=== PATIENT | male | born 1940 | race Hispanic/Latino ===

== ENCOUNTER 2018-09-28 10:18 | Inpatient (IN) | payer MEDICARE, OTHER ==
[2018-09-28] MEDS ORDERED: ZOSYN/NS 4.5GM/100ML 4.5 GM/100 ML VIAL IV ONE (10:50)
[2018-09-28] MEDS ORDERED: TYLENOL PR ONE ×2 (10:51→13:33)
[2018-09-28] MEDS ORDERED: NACL 0.9% 1000 ML 1,000 ML IV ONE (10:52)
--- NOTE | 2018-09-28 11:00 | Emergency Department Report ---
ED Fever HPI - General Stated Complaint: SEPSIS Time Seen by Provider: 09/28/18 10:41 Source: patient, EMS Exam Limitations: clinical condition, physical impairment - History of Present Illness Initial Comments: 77-year-old male with a past history of dementia and Parkinson's disease presents from [facility] with alteration mental status and fever. Patient is currently on Rocephin 1 g daily 5 days for UTI started on 09/26. Today he apparently had diminished mental status and persistent fever. Patient received 650 mg of Tylenol prior to arrival at 6 AM. assisted vitals prior to transfer were BP 108/68, heart rate 62, respiratory rate 20, and temperature 102.9. Patient says grimaces and localizes pain but makes incomprehensible sounds and does not follow commands. Outpatient labs from 09/25/2018 provided by [facility] that include a result positive for nitrites and bacteria with pending culture. ED Review of Systems ROS: Stated complaint: SEPSIS Other details as noted in HPI Comment: Unobtainable due to pts medical conditions ED Past Medical Hx - Past Medical History Previous Medical History?: Yes Hx GERD: Yes Hx Dementia: Yes Additional medical history: Parkinson's. Benign prostate hyperplasia. Glaucoma ED Physical Exam - Other Other exam information: General: Baseline dementia with diminished mental status Head exam: Atraumatic Eyes exam: Left pupil is irregularly shaped and then a reactive, right pupil reactive ENT: Dry mucous membranes Neck exam: Normal inspection, no meningismus Respiratory exam: Bilateral rhonchi, tachypnea Cardiovascular: Tachycardic regular rhythm Abdomen: Soft, nondistended, and nontender, with normal bowel sounds, no rebound, or guarding, no PEG Extremity: No deformity Back: Normal Inspection, full range of motion, no tenderness Neurologic: Make incomprehensible sounds, would not follow commands, localizes pain. Moves upper extremities equal with intention tremor noted. Patient referred safe to be flex at the hips and knee. Patient grimaces with attempt to straighten extremities. Psychiatric: normal affect, normal mood Skin: Stage I decubitus ulcers to bilateral hips, pressure ulcer to sacral area. No signs of infected ulcer ED Course Vital Signs 09/28/18 09/28/18 09/28/18 10:50 11:00 12:45 Temperature 103.7 F H Pulse Rate 118 H 118 H 106 H Respiratory 31 H 31 H 30 H Rate Blood Pressure 95/56 Blood Pressure 105/51 [Left] O2 Sat by Pulse 93 93 94 Oximetry 09/28/18 09/28/18 09/28/18 13:26 14:39 15:43 Temperature 101.2 F H Pulse Rate 98 H 99 H 98 H Respiratory 30 H 30 H 28 H Rate Blood Pressure Blood Pressure 105/57 106/53 92/56 [Left] O2 Sat by Pulse 98 95 Oximetry ED Medical Decision Making - Lab Data Result diagrams: 09/28/18 10:55 09/28/18 12:23 - EKG Data -: EKG Interpreted by [place] EKG shows normal: sinus rhythm, axis Rate: tachycardia (101) - Radiology Data Radiology results: report reviewed PROCEDURE: XR CHEST 1V AP TECHNIQUE: Chest radiograph single view. HISTORY: fever, sepsis COMPARISONS: None . FINDINGS: The cardiac silhouette is not enlarged. Confluent airspace disease in the retrocardiac left lower lobe silhouetting the left hemidiaphragm which may represent pneumonia, atelectasis and or aspiration. Increased interstitial markings, likely chronic. Pulmonary va sculature is within normal limits. Limited evaluation with patient in supine position and malrotated to the left. IMPRESSION: Confluent airspace disease in the retrocardiac left lower lobe which may represent pneumonia, atelectasis or aspiration. Follow-up PA and lateral radiographs will be helpful clinically feasible. - Medical Decision Making Patient be admitted to the hospital for urosepsis and possible pneumonia. Patient also appears to be dehydrated with elevated bun/cr ratio. Most recent lab work provided by the [facility] home September 25 BUN and creatinine were 27/0.7 with a sodium of 145 and a chloride of 108 today's finding consistent with worsening dehydration. Still awaiting UA results. Nursing sent urine to the lab 2 after Joyce catheter placement. Patient treated with vancomycin and Zosyn. Patient also received 30 mL per KG bolus of normal saline. Improvement in heart rate and blood pressure with ED treatment elevated trop x 1 no stemi on ekg elevation likely due to renal insuf asa [place] provided repeat trop pending abg is neg for acid base disturbance mild hypoxia (abg performed on 10L of Nasal cannula) pt switched go venti mask dr La updated about increasing lactic acid. - Differential Diagnosis UTI, urosepsis, encephalopathy, pneumonia Critical Care Time: No Critical care attestation.: If time is entered above; I have spent that time in minutes in the direct care of this critically ill patient, excluding procedure time. ED Disposition Clinical Impression: Sepsis, UTI (urinary tract infection), Dehydration, Acute renal insufficiency, Elevated troponin, Chronic dementia, Acute encephalopathy, Parkinsons, Pneumonia, assisted resident Disposition: OP ADMIT IP TO THIS HOSP Is pt being admited?: Yes Condition: Stable Time of Disposition: 13:28 (Dr. La/hospitalist)
[2018-09-28 11:18] LABS: Hematocrit 40.9 % (35.5-45.6); Hemoglobin 13.4 gm/dl (11.8-15.2); Mean Corpuscular HGB Conc 33 % (32-34); Mean Corpuscular Volume 102 fl (84-94); Platelet Count 332 K/mm3 (140-440); Red Blood Count 4.02 M/mm3 (3.65-5.03); Red Cell Distribution Width 14.7 % (13.2-15.2)
--- NOTE | 2018-09-28 11:38 | XRay Report ---
PROCEDURE: XR CHEST 1V AP TECHNIQUE: Chest radiograph single view. HISTORY: fever, sepsis COMPARISONS: None . FINDINGS: The cardiac silhouette is not enlarged. Confluent airspace disease in the retrocardiac left lower lobe silhouetting the left hemidiaphragm wh ich may represent pneumonia, atelectasis and or aspiration. Increased interstitial markings, likely chronic. Pulmonary vasculature is within normal limits. Limited evaluation with patient in supine position and malrotated to the left. IMPRESSION: Confluent airspace disease in the retrocardiac left lower lobe which may represent pneumo suzan, atelectasis or aspiration. Follow-up PA and lateral radiographs will be helpful clinically feasible. This document is electronically signed by Toan Hernandez MD., September 28 2018 11:36:24 AM ET
[2018-09-28] MEDS ORDERED: VANCOMYCIN/NS 1 GM/250 ML 1 GM/250 ML BAG IV ONE (12:00)
[2018-09-28] MEDS ORDERED: NACL 0.9% 1000 ML IV ONE (12:08)
[2018-09-28 12:30] LABS: Blood Urea Nitrogen TNR mg/dL (9-20)
[2018-09-28 12:31] LABS: Alanine Aminotransferase TNR units/L (7-56); Albumin TNR g/dL (3.9-5); BUN/Creatinine Ratio TNR; Calcium TNR mg/dL (8.4-10.2)
[2018-09-28 12:32] LABS: Chol/HDL Ratio TNR %; HDL Cholesterol TNR mg/dL (40-59); Hemolysis Index TNR; LDL Cholesterol,Direct TNR mg/dL (50-130)
[2018-09-28 13:07] LABS: Albumin 2.2 g/dL (3.9-5); Calcium 8.5 mg/dL (8.4-10.2)
[2018-09-28 13:12] LABS: Bacteria,Urine 1+ /HPF (Negative); Bilirubin,Urine NEG (Negative); Blood,Urine NEG (Negative); Color,Urine Amber (Yellow); Mucus,Urine 3+ /HPF
[2018-09-28] MEDS ORDERED: ASPIRIN PR ONE (13:31)
[2018-09-28 14:02] LABS: Total Cells Counted 100
[2018-09-28 14:03] LABS: Basophils % (Manual) 0 % (0.0-1.8); Eosinophils % (Manual) 0 % (0.0-4.3); Platelet Estimate Consistent w Auto; RBC Morphology Normal
[2018-09-28] MEDS ORDERED: NACL 0.9% 1000 ML 1,000 ML IV SCH (17:00)
--- NOTE | 2018-09-28 19:47 | History and Physical Report ---
History of Present Illness Date of examination: 09/28/18 Date of admission: 09/28/18 15:09 Chief complaint: Fever amd AMS for 1 day History of present illness: 77-year-old male with a past history of dementia and Parkinson's disease presents from [facility] with altered mental status and fever. Patient is currently on Rocephin 1 g daily 5 days for UTI started on 09/26. Today he apparently had diminished mental status and persistent fever. Patient received 650 mg of Tylenol prior to arrival at 6 AM. halfway vitals prior to transfer were BP 108/68, heart rate 62, respiratory rate 20, and temperature 102.9. Patient grimaces and localizes pain but makes incomprehensible sounds and does not follow commands. Outpatient labs from provided by [facility] that include a result positive for nitrites and bacteria with pending culture. As per [place] notes patienthasdisorientation,Generalized muscle weakness and difficulty walking.Also BPH and HTN Past Medical History Previous Medical History?: Yes GERD: Yes Dementia: Yes Htn Parkinson's. Benign prostate hyperplasia. Glaucoma Past Surgical History Unavailable Social History [place] resident Doesn't smoke Family History Unavailable Review of Systems ROS: Stated complaint: SEPSIS Other details as noted in HPI Comment: Unobtainable due to pts medical conditions Medications and Allergies Allergies Allergy/AdvReac Type Severity Reaction Status Date / Time haloperidol [From Haldol] Allergy Unknown Verified 09/28/18 10:54 morphine Allergy Unknown Verified 09/28/18 10:54 promethazine [From Phenergan] Allergy Unknown Verified 09/28/18 10:54 Active Meds: Active Medications Sodium Chloride (Nacl 0.9% 1000 Ml) 1,000 mls @ 200 mls/hr IV DIRECT OMAYRA Last Admin: 09/28/18 18:52 Dose: 200 mls/hr Documented by: Exam - Constitutional Vitals: Temp Pulse Resp BP Pulse Ox 99.0 F 95 H 28 H 104/57 95 09/28/18 17:56 09/28/18 17:11 09/28/18 17:11 09/28/18 17:11 09/28/18 17:11 General appearance: Present: no acute distress, well-nourished - EENT Eyes: Present: PERRL ENT: hearing intact, clear oral mucosa - Neck Neck: Present: supple, normal ROM - Respiratory Respiratory effort: normal Respiratory: bilateral: CTA - Cardiovascular Heart rate: 78 Rhythm: regular Heart Sounds: Present: S1 & S2. Absent: rub, click - Extremities Extremities: no ischemia, pulses intact, pulses symmetrical, No edema Peripheral Pulses: within normal limits - Abdominal General gastrointestinal: Present: soft, non-tender, non-distended, normal bowel sounds Male genitourinary: Present: normal - Rectal Rectal Exam: deferred - Integumentary Integumentary: Present: clear, warm, dry - Musculoskeletal Musculoskeletal: generalized weakness - Psychiatric Psychiatric: depressed, other (Lethargic,Altered sensorium.) - Neurologic Neurologic: CNII-XII intact (Could not be examined b/c of altered sensorium), moves all extremities - Allied Health Allied health notes reviewed: nursing, case management Results - Labs CBC & Chem 7: 09/29/18 04:42 09/29/18 04:42 Labs: Laboratory Last Values WBC 13.8 K/mm3 (4.5-11.0) H 09/28/18 10:55 RBC 4.02 M/mm3 (3.65-5.03) 09/28/18 10:55 Hgb 13.4 gm/dl (11.8-15.2) 09/28/18 10:55 Hct 40.9 % (35.5-45.6) 09/28/18 10:55 MCV 102 fl (84-94) H 09/28/18 10:55 MCH 33 pg (28-32) H 09/28/18 10:55 MCHC 33 % (32-34) 09/28/18 10:55 RDW 14.7 % (13.2-15.2) 09/28/18 10:55 Plt Count 332 K/mm3 (140-440) 09/28/18 10:55 Add Manual Diff Complete 09/28/18 10:55 Total Counted 100 09/28/18 10:55 Seg Neutrophils % Boom Conveyor Operator 09/28/18 10:55 Seg Neuts % (Manual) 77.0 % (40.0-70.0) H 09/28/18 10:55 7.0 % 09/28/18 10:55 6.0 % (13.4-35.0) L 09/28/18 10:55 Reactive Lymphs % (Man) 0 % 09/28/18 10:55 10.0 % (0.0-7.3) H 09/28/18 10:55 0 % (0.0-4.3) 09/28/18 10:55 0 % (0.0-1.8) 09/28/18 10:55 0 % 09/28/18 10:55 0 % 09/28/18 10:55 0 % 09/28/18 10:55 0 % 09/28/18 10:55 Nucleated RBC % Not Reportable 09/28/18 10:55 Seg Neutrophils # Man 10.6 K/mm3 (1.8-7.7) H 09/28/18 10:55 Band Neutrophils # 1.0 K/mm3 09/28/18 10:55 0.8 K/mm3 (1.2-5.4) L 09/28/18 10:55 Abs React Lymphs (Man) 0.0 K/mm3 09/28/18 10:55 1.4 K/mm3 (0.0-0.8) H 09/28/18 10:55 0.0 K/mm3 (0.0-0.4) 09/28/18 10:55 0.0 K/mm3 (0.0-0.1) 09/28/18 10:55 0.0 K/mm3 09/28/18 10:55 0.0 K/mm3 09/28/18 10:55 0.0 K/mm3 09/28/18 10:55 Blast Cells # 0.0 K/mm3 09/28/18 10:55 WBC Morphology Not Reportable 09/28/18 10:55 Hypersegmented Neuts Not Reportable 09/28/18 10:55 Hyposegmented Neuts Not Reportable 09/28/18 10:55 Hypogranular Neuts Not Reportable 09/28/18 10:55 Not Reportable 09/28/18 10:55 Not Reportable 09/28/18 10:55 Not Reportable 09/28/18 10:55 Not Reportable 09/28/18 10:55 Not Reportable 09/28/18 10:55 Not Reportable 09/28/18 10:55 Consistent w auto 09/28/18 10:55 Not Reportable 09/28/18 10:55 Plt Clumps, EDTA Not Reportable 09/28/18 10:55 Not Reportable 09/28/18 10:55 Not Reportable 09/28/18 10:55 Not Reportable 09/28/18 10:55 Plt Morphology Comment Not Reportable 09/28/18 10:55 RBC Morphology Normal 09/28/18 10:55 Dimorphic RBCs Not Reportable 09/28/18 10:55 Not Reportable 09/28/18 10:55 Not Reportable 09/28/18 10:55 Not Reportable 09/28/18 10:55 Not Reportable 09/28/18 10:55 Not Reportable 09/28/18 10:55 Not Reportable 09/28/18 10:55 Not Reportable 09/28/18 10:55 Not Reportable 09/28/18 10:55 Not Reportable 09/28/18 10:55 Not Reportable 09/28/18 10:55 Not Reportable 09/28/18 10:55 Not Reportable 09/28/18 10:55 Not Reportable 09/28/18 10:55 Not Reportable 09/28/18 10:55 Not Reportable 09/28/18 10:55 Not Reportable 09/28/18 10:55 Not Reportable 09/28/18 10:55 Not Reportable 09/28/18 10:55 Not Reportable 09/28/18 10:55 Acanthocytes (Spur) Not Reportable 09/28/18 10:55 Rouleaux Not Reportable 09/28/18 10:55 Not Reportable 09/28/18 10:55 Not Reportable 09/28/18 10:55 Not Reportable 09/28/18 10:55 Not Reportable 09/28/18 10:55 Hem Pathologist Commnt No 09/28/18 10:55 POC ABG pH 7.408 (7.35-7.45) 09/28/18 14:16 POC ABG pCO2 37.5 (35-45) 09/28/18 14:16 POC ABG pO2 64 (80-105) L 09/28/18 14:16 POC ABG HCO3 23.6 (22-26 mml/L) 09/28/18 14:16 POC ABG Total CO2 25 (23-27mmol/L) 09/28/18 14:16 POC ABG O2 Sat 92 09/28/18 14:16 POC ABG Base Excess -1 ((-2) - (+3)mmol/L) 09/28/18 14:16 VBG pH 7.416 (7.320-7.420) 09/28/18 11:20 70 % 09/28/18 14:16 Sodium 154 mmol/L (137-145) H 09/28/18 12:23 Potassium 3.9 mmol/L (3.6-5.0) 09/28/18 12:23 Chloride 115.7 mmol/L (98-107) H 09/28/18 12:23 Carbon Dioxide 23 mmol/L (22-30) 09/28/18 12:23 19 mmol/L 09/28/18 12:23 BUN 62 mg/dL (9-20) H 09/28/18 12:23 1.7 mg/dL (0.8-1.5) H 09/28/18 12:23 Estimated GFR 39 ml/min 09/28/18 12:23 36 % 09/28/18 12:23 Glucose 293 mg/dL (75-100) H 09/28/18 12:23 POC Glucose 191 (70-105) H 09/28/18 17:58 Lactic Acid 3.90 mmol/L (0.7-2.0) H* 09/28/18 15:40 Calcium 8.5 mg/dL (8.4-10.2) 09/28/18 12:23 0.70 mg/dL (0.1-1.2) 09/28/18 12:23 AST 44 units/L (5-40) H 09/28/18 12:23 ALT 42 units/L (7-56) 09/28/18 12:23 66 units/L (35-129) 09/28/18 12:23 0.033 ng/mL (0.00-0.029) H D 09/28/18 14:46 6.6 g/dL (6.3-8.2) 09/28/18 12:23 2.2 g/dL (3.9-5) L 09/28/18 12:23 0.5 % 09/28/18 12:23 Triglycerides TNR 09/28/18 10:55 Cholesterol TNR 09/28/18 10:55 TNR 09/28/18 10:55 TNR 09/28/18 10:55 TNR 09/28/18 10:55 Lotus (Yellow) 09/28/18 11:57 Slightly-cloudy (Clear) 09/28/18 11:57 5.0 (5.0-7.0) 09/28/18 11:57 Ur Specific [place] 1.027 (1.003-1.030) 09/28/18 11:57 30 mg/dl mg/dL (Negative) 09/28/18 11:57 Neg mg/dL (Negative) 09/28/18 11:57 Neg mg/dL (Negative) 09/28/18 11:57 Neg (Negative) 09/28/18 11:57 Neg (Negative) 09/28/18 11:57 Neg (Negative) 09/28/18 11:57 2.0 mg/dL (<2.0) 09/28/18 11:57 Ur Leukocyte Esterase Tr (Negative) 09/28/18 11:57 10.0 /HPF (0.0-6.0) H 09/28/18 11:57 9.0 /HPF (0.0-6.0) 09/28/18 11:57 U Epithel Cells (Auto) < 1.0 /HPF (0-13.0) 09/28/18 11:57 1+ /HPF (Negative) 09/28/18 11:57 3+ /HPF 09/28/18 11:57 Valproic Acid 3.8 ug/mL (50-100) L 09/28/18 10:55 Short CBC 09/28/18 09/29/18 Range/Units 10:55 04:42 WBC 13.8 H 8.3 (4.5-11.0) K/mm3 Hgb 13.4 10.8 L (11.8-15.2) gm/dl Hct 40.9 32.3 L D (35.5-45.6) % Plt Count 332 211 (140-440) K/mm3 BMP 09/28/18 09/28/18 09/29/18 10:55 12:23 04:42 Sodium TNR 154 H 160 H Potassium TNR 3.9 4.0 Chloride TNR 115.7 H 126.8 H Carbon Dioxide TNR 23 25 BUN TNR 62 H 47 H Creatinine TNR 1.7 H 0.8 D Glucose TNR 293 H 169 H Calcium TNR 8.5 8.2 L Cardiac Enzymes 09/28/18 09/28/18 09/28/18 Range/Units 10:55 12:23 14:46 Troponin T TNR 0.042 H 0.033 H D Liver Function 09/28/18 09/28/18 09/29/18 Range/Units 10:55 12:23 04:42 Total Bilirubin TNR 0.70 0.60 AST TNR 44 H 34 ALT TNR 42 37 Alkaline Phosphatase TNR 66 54 Albumin TNR 2.2 L 2.1 L Urine 09/28/18 Range/Units 11:57 Urine Color Lotus (Yellow) Urine pH 5.0 (5.0-7.0) Ur Specific [place] 1.027 (1.003-1.030) Urine Protein 30 mg/dl (Negative) mg/dL Urine Glucose (UA) Neg (Negative) mg/dL - Imaging and Cardiology EKG: report reviewed (Sinus Tachycardia LVH 101/min) Chest x-ray: report reviewed Imaging and Cardiology: CXR IMPRESSION: Confluent airspace disease in the retrocardiac left lower lobe which may represent pneumonia, atelectasis or aspiration. Follow-up PA and lateral radiographs will be helpful clinically feasible. Assessment and Plan Advance Directives: Yes (Full code) VTE prophylaxis?: Chemical Plan of care discussed with patient/family: No - Patient Problems (1) Acute encephalopathy Current Visit: Yes Status: Acute Plan to address problem: Sec to sepsis and Hypernatremia IV D5w for now IV abx and (2) Sepsis Current Visit: Yes Status: Acute Plan to address problem: Sec to Pneumonia Sepsis pathway IV Cefepime and IV Vancomycin (3) Hypotension Current Visit: Yes Status: Acute Qualifiers: Hypotension type: unspecified hypotension type Qualified Code(s): I95.9 - Hypotension, unspecified Plan to address problem: Sec to Sepsis IV Fluids for now (4) Pneumonia Current Visit: Yes Status: Acute Qualifiers: Laterality: left Lung location: lower lobe of lung Plan to address problem: Polssible aspiration Swallow studies IV Cefepime and IV vancomycin (5) UTI (urinary tract infection) Current Visit: Yes Status: Acute Qualifiers: Urinary tract infection type: acute cystitis Plan to address problem: On IV cefepime for Pneumonia which should cover UTI Check Urine cultures (6) Hypernatremia Current Visit: Yes Status: Acute Plan to address problem: IV D5w (7) KRISTIE (acute kidney injury) Current Visit: Yes Status: Acute (8) BPH (benign prostatic hyperplasia) Current Visit: Yes Status: Chronic Qualifiers: Lower urinary tract symptom presence: symptoms present Plan to address problem: Flomax 0.4 mg po qd (9) Parkinson disease Current Visit: Yes Status: Chronic Plan to address problem: On Sinemet (10) Malnutrition Current Visit: Yes Status: Acute Qualifiers: Protein-calorie malnutrition severity: severe Plan to address problem: Dietitian consult (11) Elevated troponin Current Visit: Yes Status: Acute Plan to address problem: Non specific (12) DVT prophylaxis Current Visit: Yes Status: Acute Plan to address problem: On Heparin and GI prophylaxis
[2018-09-28] MEDS ORDERED: ZOFRAN IV PRN (19:50)
[2018-09-28] MEDS ORDERED: SODIUM CHLORIDE FLUSH SYRINGE 10 ML IV PRN (19:50)
[2018-09-28] MEDS ORDERED: MORPHINE IV PRN (19:50)
[2018-09-28] MEDS ORDERED: D5NS 1,000 ML IV SCH (20:00)
[2018-09-28] MEDS ORDERED: VANCOMYCIN PHARMACY TO DOSE IV SCH (20:00)
[2018-09-28] MEDS ORDERED: LOVENOX SUB-Q SCH (22:00)
[2018-09-28] MEDS: PEPCID IV SCH (22:20)
[2018-09-28] MEDS: SODIUM CHLORIDE FLUSH SYRINGE 10 ML IV SCH (22:26)
[2018-09-28] MEDS: MAXIPIME/NS 2 GM/100 ML 2 GM/100 ML BAG IV SCH (22:46)
[2018-09-29 05:08] LABS: Basophils % (Auto) 0.4 % (0.0-1.8); Hematocrit 32.3 % (35.5-45.6); Hemoglobin 10.8 gm/dl (11.8-15.2); Lymphocytes # (Auto) 0.8 K/mm3 (1.2-5.4); Lymphocytes % (Auto) 9.4 % (13.4-35.0); Mean Corpuscular HGB Conc 34 % (32-34); Mean Corpuscular Volume 101 fl (84-94); Monocytes # (Auto) 0.4 K/mm3 (0.0-0.8); Monocytes % (Auto) 4.3 % (0.0-7.3); Platelet Count 211 K/mm3 (140-440); Red Cell Distribution Width 14.3 % (13.2-15.2)
[2018-09-29 05:29] LABS: Alanine Aminotransferase 37 units/L (7-56); Albumin 2.1 g/dL (3.9-5); BUN/Creatinine Ratio 59; Blood Urea Nitrogen 47 mg/dL (9-20); Calcium 8.2 mg/dL (8.4-10.2); Hemolysis Index 2
[2018-09-29] MEDS ORDERED: D5W 1,000 ML IV SCH (07:00)
[2018-09-29] MEDS: SINEMET PO SCH ×3 (08:11→22:26)
[2018-09-29] MEDS: PEPCID IV SCH ×2 (09:10→22:26)
[2018-09-29] MEDS: SODIUM CHLORIDE FLUSH SYRINGE 10 ML IV SCH ×2 (09:21→22:26)
[2018-09-29] MEDS: FLOMAX PO SCH (10:05)
--- NOTE | 2018-09-29 10:32 | Consultation ---
History of Present Illness - Reason for Consult Consult date: 09/29/18 sepsis Requesting physician: KAYLA ARCOS - History of Present Illness 77 y/o male with history of dementia and Parkinson's disease, currently being treated for a UTI at [facility] with ceftriaxone IV D3 of 5, admitted on 09/28/2018 due to alteration mental status and fever 102.9. Per residential patient found slightly hypotensive, somnelent and fever of 102.9 despite antibiotics. Urine culture is pending. Outpatient labs from 09/25/2018 UA shows positive for nitrites and bacteria. In the ED, temp 103.7, HR 118, R31, BP 95/56. WBC 13.8. Hg 13.4. Plat 332. Creat 1.7. UA with 10 wbc, trace LE. LA 3.8. Blood cultures 09/28/2018 no growth so far. CXR shows confluent airspace disease retrocardiac and LLL. On arrival to the ED, he was on venturi mask at 40% FiO2 with O2sat 95-97%. Noted contracted, non-verbal, moans on touch. Noted juarez cath, draining clear, light claudia urine. Noted sacral and left hip pressure ulcers. Review of Systems: unable to obtain due to AMS Medications and Allergies Allergies Allergy/AdvReac Type Severity Reaction Status Date / Time haloperidol [From Haldol] Allergy Unknown Verified 09/28/18 10:54 morphine Allergy Unknown Verified 09/28/18 10:54 promethazine [From Phenergan] Allergy Unknown Verified 09/28/18 10:54 Active Meds: Active Medications Acetaminophen (Tylenol) 650 mg PO Q4H PRN PRN Reason: Pain MILD(1-3)/Fever >100.5/CHACKO Carbidopa/Levodopa (Sinemet) 1 each PO TID OMAYRA Famotidine (Pepcid) 20 mg IV BID OMAYRA Last Admin: 09/29/18 09:10 Dose: 20 mg Documented by: Heparin Sodium (Porcine) (Heparin) 5,000 unit SUB-Q Q12HR OMAYRA Cefepime HCl (Maxipime/Ns 2 Gm/100 Ml) 2 gm in 100 mls @ 200 mls/hr IV Q8HR OMAYRA; Protocol Last Admin: 09/28/18 22:46 Dose: 200 mls/hr Documented by: Dextrose (D5w) 1,000 mls @ 100 mls/hr IV DIRECT [facility] Last Admin: 09/29/18 09:25 Dose: 100 mls/hr Documented by: Vancomycin HCl 750 mg/ Sodium (Chloride) 265 mls @ 166.667 mls/hr IV Q12HR [facility] Morphine Sulfate (Morphine) 2 mg IV Q4H PRN PRN Reason: Pain, Moderate (4-6) Ondansetron HCl (Zofran) 4 mg IV Q3H PRN PRN Reason: Nausea And Vomiting Sodium Chloride (Sodium Chloride Flush Syringe 10 Ml) 10 ml IV BID [facility] Last Admin: 09/29/18 09:21 Dose: 10 ml Documented by: Sodium Chloride (Sodium Chloride Flush Syringe 10 Ml) 10 ml IV PRN PRN PRN Reason: LINE FLUSH Tamsulosin HCl (Flomax) 0.4 mg PO QDAY [facility] Physical Examination - Physical Exam Narrative exam: General appearance: somnolent no follows commands Eyes: anicteric sclerae, moist conjunctivae; no lid-lag; PERRLA HENT: Atraumatic; oropharynx limited Neck: Trachea midline; supple, no thyromegaly or lymphadenopathy Lungs: decreased BS dolly CV: RRR no murmur Abdomen: Soft, non-tender; no masses or hepatosplenomegaly Extremities: no edema, contracted Skin: stage I-II sacral not infected Psych: no agitated. Neuro: somnolent no follows commands - Constitutional Vitals: Vital Signs Temp Pulse Resp BP Pulse Ox 99.1 F 77 28 H 104/57 95 09/29/18 03:00 09/28/18 22:00 09/28/18 17:11 09/28/18 17:11 09/28/18 17:11 Temperature -Last 24 Hours Temperature 99.1 F Temperature 97.6 F Temperature 98.2 F Temperature 99.0 F Temperature 101.2 F Temperature 103.7 F Results - Labs CBC & Chem 7: 09/29/18 04:42 09/29/18 04:42 Labs: Abnormal lab results 09/28/18 09/28/18 09/28/18 Range/Units 10:55 10:55 10:55 WBC 13.8 H (4.5-11.0) K/mm3 RBC (3.65-5.03) M/mm3 Hgb (11.8-15.2) gm/dl Hct (35.5-45.6) % MCV 102 H (84-94) fl MCH 33 H (28-32) pg Lymph % (Auto) (13.4-35.0) % Lymph # (1.2-5.4) K/mm3 Seg Neutrophils % (40.0-70.0) % Seg Neuts % (Manual) 77.0 H (40.0-70.0) % Lymphocytes % (Manual) 6.0 L (13.4-35.0) % Monocytes % (Manual) 10.0 H (0.0-7.3) % Seg Neutrophils # Man 10.6 H (1.8-7.7) K/mm3 Lymphocytes # (Manual) 0.8 L (1.2-5.4) K/mm3 Monocytes # (Manual) 1.4 H (0.0-0.8) K/mm3 POC ABG pO2 (80-105) Sodium (137-145) mmol/L Chloride (98-107) mmol/L BUN (9-20) mg/dL Creatinine (0.8-1.5) mg/dL Glucose (75-100) mg/dL POC Glucose (70-105) Lactic Acid 3.80 H* (0.7-2.0) mmol/L Calcium (8.4-10.2) mg/dL AST (5-40) units/L Troponin T (0.00-0.029) ng/mL Total Protein (6.3-8.2) g/dL Albumin (3.9-5) g/dL Urine WBC (Auto) (0.0-6.0) /HPF Valproic Acid 3.8 L (50-100) ug/mL 09/28/18 09/28/18 09/28/18 Range/Units 11:57 12:23 12:23 WBC (4.5-11.0) K/mm3 RBC (3.65-5.03) M/mm3 Hgb (11.8-15.2) gm/dl Hct (35.5-45.6) % MCV (84-94) fl MCH (28-32) pg Lymph % (Auto) (13.4-35.0) % Lymph # (1.2-5.4) K/mm3 Seg Neutrophils % (40.0-70.0) % Seg Neuts % (Manual) (40.0-70.0) % Lymphocytes % (Manual) (13.4-35.0) % Monocytes % (Manual) (0.0-7.3) % Seg Neutrophils # Man (1.8-7.7) K/mm3 Lymphocytes # (Manual) (1.2-5.4) K/mm3 Monocytes # (Manual) (0.0-0.8) K/mm3 POC ABG pO2 (80-105) Sodium 154 H (137-145) mmol/L Chloride 115.7 H (98-107) mmol/L BUN 62 H (9-20) mg/dL Creatinine 1.7 H (0.8-1.5) mg/dL Glucose 293 H (75-100) mg/dL POC Glucose (70-105) Lactic Acid 3.50 H* (0.7-2.0) mmol/L Calcium (8.4-10.2) mg/dL AST 44 H (5-40) units/L Troponin T 0.042 H (0.00-0.029) ng/mL Total Protein (6.3-8.2) g/dL Albumin 2.2 L (3.9-5) g/dL Urine WBC (Auto) 10.0 H (0.0-6.0) /HPF Valproic Acid (50-100) ug/mL 09/28/18 09/28/18 09/28/18 Range/Units 14:16 14:46 14:46 WBC (4.5-11.0) K/mm3 RBC (3.65-5.03) M/mm3 Hgb (11.8-15.2) gm/dl Hct (35.5-45.6) % MCV (84-94) fl MCH (28-32) pg Lymph % (Auto) (13.4-35.0) % Lymph # (1.2-5.4) K/mm3 Seg Neutrophils % (40.0-70.0) % Seg Neuts % (Manual) (40.0-70.0) % Lymphocytes % (Manual) (13.4-35.0) % Monocytes % (Manual) (0.0-7.3) % Seg Neutrophils # Man (1.8-7.7) K/mm3 Lymphocytes # (Manual) (1.2-5.4) K/mm3 Monocytes # (Manual) (0.0-0.8) K/mm3 POC ABG pO2 64 L (80-105) Sodium (137-145) mmol/L Chloride (98-107) mmol/L BUN (9-20) mg/dL Creatinine (0.8-1.5) mg/dL Glucose (75-100) mg/dL POC Glucose (70-105) Lactic Acid 5.40 H* (0.7-2.0) mmol/L Calcium (8.4-10.2) mg/dL AST (5-40) units/L Troponin T 0.033 H D (0.00-0.029) ng/mL Total Protein (6.3-8.2) g/dL Albumin (3.9-5) g/dL Urine WBC (Auto) (0.0-6.0) /HPF Valproic Acid (50-100) ug/mL 09/28/18 09/28/18 09/28/18 Range/Units 15:40 17:58 23:22 WBC (4.5-11.0) K/mm3 RBC (3.65-5.03) M/mm3 Hgb (11.8-15.2) gm/dl Hct (35.5-45.6) % MCV (84-94) fl MCH (28-32) pg Lymph % (Auto) (13.4-35.0) % Lymph # (1.2-5.4) K/mm3 Seg Neutrophils % (40.0-70.0) % Seg Neuts % (Manual) (40.0-70.0) % Lymphocytes % (Manual) (13.4-35.0) % Monocytes % (Manual) (0.0-7.3) % Seg Neutrophils # Man (1.8-7.7) K/mm3 Lymphocytes # (Manual) (1.2-5.4) K/mm3 Monocytes # (Manual) (0.0-0.8) K/mm3 POC ABG pO2 (80-105) Sodium (137-145) mmol/L Chloride (98-107) mmol/L BUN (9-20) mg/dL Creatinine (0.8-1.5) mg/dL Glucose (75-100) mg/dL POC Glucose 191 H 148 H (70-105) Lactic Acid 3.90 H* (0.7-2.0) mmol/L Calcium (8.4-10.2) mg/dL AST (5-40) units/L Troponin T (0.00-0.029) ng/mL Total Protein (6.3-8.2) g/dL Albumin (3.9-5) g/dL Urine WBC (Auto) (0.0-6.0) /HPF Valproic Acid (50-100) ug/mL 09/29/18 09/29/18 09/29/18 Range/Units 04:42 04:42 05:40 WBC (4.5-11.0) K/mm3 RBC 3.20 L (3.65-5.03) M/mm3 Hgb 10.8 L (11.8-15.2) gm/dl Hct 32.3 L D (35.5-45.6) % MCV 101 H (84-94) fl MCH 34 H (28-32) pg Lymph % (Auto) 9.4 L (13.4-35.0) % Lymph # 0.8 L (1.2-5.4) K/mm3 Seg Neutrophils % 85.9 H (40.0-70.0) % Seg Neuts % (Manual) (40.0-70.0) % Lymphocytes % (Manual) (13.4-35.0) % Monocytes % (Manual) (0.0-7.3) % Seg Neutrophils # Man (1.8-7.7) K/mm3 Lymphocytes # (Manual) (1.2-5.4) K/mm3 Monocytes # (Manual) (0.0-0.8) K/mm3 POC ABG pO2 (80-105) Sodium 160 H (137-145) mmol/L Chloride 126.8 H (98-107) mmol/L BUN 47 H (9-20) mg/dL Creatinine (0.8-1.5) mg/dL Glucose 169 H (75-100) mg/dL POC Glucose 161 H (70-105) Lactic Acid (0.7-2.0) mmol/L Calcium 8.2 L (8.4-10.2) mg/dL AST (5-40) units/L Troponin T (0.00-0.029) ng/mL Total Protein 5.6 L (6.3-8.2) g/dL Albumin 2.1 L (3.9-5) g/dL Urine WBC (Auto) (0.0-6.0) /HPF Valproic Acid (50-100) ug/mL Assessment and Plan Cultures: Blood cultures 09/28/2018 no growth so far. Assessment: 77 y/o male with history of dementia and Parkinson's disease, admitted on 09/28/2018 due to alteration mental status and fever 102.9: 1) Severe Sepsis: Present on admission, manifested by fever, hypotension, tach ycardia, increased lactate and AMS. Etiology most likely due to HCAP +/- UTI. Blood cultures 09/28/2018 no growth so far. 2) HCAP: ? Staph ? Pseudomonas. CXR shows confluent airspace disease retroca rdiac and LLL. 3) UTI: UA with 10 wbc, trace LE. currently being treated for a UTI at [facility] with ceftriaxone IV D3 of 5. He has a juarez ? brought it from [place]. Noted juarez cath, draining clear, light claudia urine on arrival to the ED. 4) Acute respiratory failure: on venturi mask 5) KRISTIE: better. Recommendations: - follow-up blood cultures, urine culture - continue cefepime 2 g IV q8h and vancomycin with PK consult D2 of 7 - check MRSA Screening Will follow. Ana Luisa Pedro MD Infectious Diseases Agent Producer [facility] ([facility]) M [phone] O [phone]
[2018-09-29] MEDS: HEPARIN SUB-Q SCH ×2 (10:49→22:25)
[2018-09-29] MEDS: VANCOMYCIN 750 MG in NACL 0.9% 250ML 250 ML IV SCH ×2 (11:10→22:24)
[2018-09-29] MEDS: MAXIPIME/NS 2 GM/100 ML 2 GM/100 ML BAG IV SCH ×3 (13:09→22:20)
--- NOTE | 2018-09-29 15:20 | Progress Note ---
Assessment and Plan Assessment and plan: CC; Fever amd AMS for 1 day History of present illness: 77-year-old male with a past history of dementia and Parkinson's disease presents from [facility] with altered mental status and fever. Past Medical History ; gerd, dementia, htn, PD, BPH, glaucoma severe sepsis, UTI, PNA cont abx, fup cx, ID input appreciated hypernatremia/free water deficit/KRISTIE due to ATN -had episodes of hypotension that responded to IVF -free water deficit calculated at 3.8L - cont hypotonic IVF, KRISTIE resolved, Na today is 160 -nephrology consult severe malnutrition -elementary school tutor consult BPH (benign prostatic hyperplasia) Flomax 0.4 mg po qd Parkinson disease On Sinemet DVT prophylaxis On Heparin and GI prophylaxis History Interval history: He continues to have fever and confusion Hospitalist Physical - Physical exam Narrative exam: General.: Appears ill HEENT: Moist mucous membranes, extraocular muscles intact, no lymphadenopathy Neck: supple Cardiac: S1-S2 heard Lungs: clear to auscultation bilaterally Abdomen: soft , nontender, nondistended, bowel sounds positive Extremities: no edema clubbing or cyanosis Skin: no rash or lesions Neurologic: Confused Psych: Confused - Constitutional Vitals: Temp Pulse Resp BP Pulse Ox 98.4 F 77 28 H 104/57 95 09/29/18 12:00 09/28/18 22:00 09/28/18 17:11 09/28/18 17:11 09/28/18 17:11 General appearance: Present: no acute distress, well-nourished Results - Labs CBC & Chem 7: 10/01/18 05:22 10/06/18 05:21 Labs: Laboratory Last Values WBC 8.3 K/mm3 (4.5-11.0) 09/29/18 04:42 RBC 3.20 M/mm3 (3.65-5.03) L 09/29/18 04:42 Hgb 10.8 gm/dl (11.8-15.2) L 09/29/18 04:42 Hct 32.3 % (35.5-45.6) L D 09/29/18 04:42 MCV 101 fl (84-94) H 09/29/18 04:42 MCH 34 pg (28-32) H 09/29/18 04:42 MCHC 34 % (32-34) 09/29/18 04:42 RDW 14.3 % (13.2-15.2) 09/29/18 04:42 Plt Count 211 K/mm3 (140-440) 09/29/18 04:42 Lymph % (Auto) 9.4 % (13.4-35.0) L 09/29/18 04:42 Real % (Auto) 4.3 % (0.0-7.3) 09/29/18 04:42 Eos % (Auto) 0.0 % (0.0-4.3) 09/29/18 04:42 Baso % (Auto) 0.4 % (0.0-1.8) 09/29/18 04:42 Lymph # 0.8 K/mm3 (1.2-5.4) L 09/29/18 04:42 Real # 0.4 K/mm3 (0.0-0.8) 09/29/18 04:42 Eos # 0.0 K/mm3 (0.0-0.4) 09/29/18 04:42 Baso # 0.0 K/mm3 (0.0-0.1) 09/29/18 04:42 Add Manual Diff Complete 09/28/18 10:55 Total Counted 100 09/28/18 10:55 Seg Neutrophils % 85.9 % (40.0-70.0) H 09/29/18 04:42 Seg Neuts % (Manual) 77.0 % (40.0-70.0) H 09/28/18 10:55 7.0 % 09/28/18 10:55 6.0 % (13.4-35.0) L 09/28/18 10:55 Reactive Lymphs % (Man) 0 % 09/28/18 10:55 10.0 % (0.0-7.3) H 09/28/18 10:55 0 % (0.0-4.3) 09/28/18 10:55 0 % (0.0-1.8) 09/28/18 10:55 0 % 09/28/18 10:55 0 % 09/28/18 10:55 0 % 09/28/18 10:55 0 % 09/28/18 10:55 Nucleated RBC % Not Reportable 09/28/18 10:55 Seg Neutrophils # 7.1 K/mm3 (1.8-7.7) 09/29/18 04:42 Seg Neutrophils # Man 10.6 K/mm3 (1.8-7.7) H 09/28/18 10:55 Band Neutrophils # 1.0 K/mm3 09/28/18 10:55 0.8 K/mm3 (1.2-5.4) L 09/28/18 10:55 Abs React Lymphs (Man) 0.0 K/mm3 09/28/18 10:55 1.4 K/mm3 (0.0-0.8) H 09/28/18 10:55 0.0 K/mm3 (0.0-0.4) 09/28/18 10:55 0.0 K/mm3 (0.0-0.1) 09/28/18 10:55 0.0 K/mm3 09/28/18 10:55 0.0 K/mm3 09/28/18 10:55 0.0 K/mm3 09/28/18 10:55 Blast Cells # 0.0 K/mm3 09/28/18 10:55 WBC Morphology Not Reportable 09/28/18 10:55 Hypersegmented Neuts Not Reportable 09/28/18 10:55 Hyposegmented Neuts Not Reportable 09/28/18 10:55 Hypogranular Neuts Not Reportable 09/28/18 10:55 Not Reportable 09/28/18 10:55 Not Reportable 09/28/18 10:55 Not Reportable 09/28/18 10:55 Not Reportable 09/28/18 10:55 Not Reportable 09/28/18 10:55 Not Reportable 09/28/18 10:55 Consistent w auto 09/28/18 10:55 Not Reportable 09/28/18 10:55 Plt Clumps, EDTA Not Reportable 09/28/18 10:55 Not Reportable 09/28/18 10:55 Not Reportable 09/28/18 10:55 Not Reportable 09/28/18 10:55 Plt Morphology Comment Not Reportable 09/28/18 10:55 RBC Morphology Normal 09/28/18 10:55 Dimorphic RBCs Not Reportable 09/28/18 10:55 Not Reportable 09/28/18 10:55 Not Reportable 09/28/18 10:55 Not Reportable 09/28/18 10:55 Not Reportable 09/28/18 10:55 Not Reportable 09/28/18 10:55 Not Reportable 09/28/18 10:55 Not Reportable 09/28/18 10:55 Not Reportable 09/28/18 10:55 Not Reportable 09/28/18 10:55 Not Reportable 09/28/18 10:55 Not Reportable 09/28/18 10:55 Not Reportable 09/28/18 10:55 Not Reportable 09/28/18 10:55 Not Reportable 09/28/18 10:55 Not Reportable 09/28/18 10:55 Not Reportable 09/28/18 10:55 Not Reportable 09/28/18 10:55 Not Reportable 09/28/18 10:55 Not Reportable 09/28/18 10:55 Acanthocytes (Spur) Not Reportable 09/28/18 10:55 Rouleaux Not Reportable 09/28/18 10:55 Not Reportable 09/28/18 10:55 Not Reportable 09/28/18 10:55 Not Reportable 09/28/18 10:55 Not Reportable 09/28/18 10:55 Hem Pathologist Commnt No 09/28/18 10:55 POC ABG pH 7.408 (7.35-7.45) 09/28/18 14:16 POC ABG pCO2 37.5 (35-45) 09/28/18 14:16 POC ABG pO2 64 (80-105) L 09/28/18 14:16 POC ABG HCO3 23.6 (22-26 mml/L) 09/28/18 14:16 POC ABG Total CO2 25 (23-27mmol/L) 09/28/18 14:16 POC ABG O2 Sat 92 09/28/18 14:16 POC ABG Base Excess -1 ((-2) - (+3)mmol/L) 09/28/18 14:16 VBG pH 7.416 (7.320-7.420) 09/28/18 11:20 70 % 09/28/18 14:16 Sodium 160 mmol/L (137-145) H 09/29/18 04:42 Potassium 4.0 mmol/L (3.6-5.0) 09/29/18 04:42 Chloride 126.8 mmol/L (98-107) H 09/29/18 04:42 Carbon Dioxide 25 mmol/L (22-30) 09/29/18 04:42 12 mmol/L 09/29/18 04:42 BUN 47 mg/dL (9-20) H 09/29/18 04:42 0.8 mg/dL (0.8-1.5) D 09/29/18 04:42 Estimated GFR > 60 ml/min 09/29/18 04:42 59 % 09/29/18 04:42 Glucose 169 mg/dL (75-100) H 09/29/18 04:42 POC Glucose 145 (70-105) H 09/29/18 12:49 5.3 % (4-6) 09/28/18 10:55 Lactic Acid 1.60 mmol/L (0.7-2.0) 09/28/18 23:46 Calcium 8.2 mg/dL (8.4-10.2) L 09/29/18 04:42 0.60 mg/dL (0.1-1.2) 09/29/18 04:42 AST 34 units/L (5-40) 09/29/18 04:42 ALT 37 units/L (7-56) 09/29/18 04:42 54 units/L (35-129) 09/29/18 04:42 0.033 ng/mL (0.00-0.029) H D 09/28/18 14:46 5.6 g/dL (6.3-8.2) L 09/29/18 04:42 2.1 g/dL (3.9-5) L 09/29/18 04:42 0.6 % 09/29/18 04:42 Triglycerides TNR 09/28/18 10:55 Cholesterol TNR 09/28/18 10:55 TNR 09/28/18 10:55 TNR 09/28/18 10:55 TNR 09/28/18 10:55 Lotus (Yellow) 09/28/18 11:57 Slightly-cloudy (Clear) 09/28/18 11:57 5.0 (5.0-7.0) 09/28/18 11:57 Ur Specific [place] 1.027 (1.003-1.030) 09/28/18 11:57 30 mg/dl mg/dL (Negative) 09/28/18 11:57 Neg mg/dL (Negative) 09/28/18 11:57 Neg mg/dL (Negative) 09/28/18 11:57 Neg (Negative) 09/28/18 11:57 Neg (Negative) 09/28/18 11:57 Neg (Negative) 09/28/18 11:57 2.0 mg/dL (<2.0) 09/28/18 11:57 Ur Leukocyte Esterase Tr (Negative) 09/28/18 11:57 10.0 /HPF (0.0-6.0) H 09/28/18 11:57 9.0 /HPF (0.0-6.0) 09/28/18 11:57 U Epithel Cells (Auto) < 1.0 /HPF (0-13.0) 09/28/18 11:57 1+ /HPF (Negative) 09/28/18 11:57 3+ /HPF 09/28/18 11:57 Valproic Acid 3.8 ug/mL (50-100) L 09/28/18 10:55 Active Medications - Current Medications Current Medications: Generic Name Dose Route Start Last Admin Trade Name Freq PRN Reason Stop Dose Admin Acetaminophen 650 mg 09/28/18 19:50 Tylenol PO Q4H PRN Pain MILD(1-3)/Fever >100.5/CHACKO Carbidopa/Levodopa 1 each 09/29/18 08:00 09/29/18 14:06 Sinemet PO 1 each TID OMAYRA Administration Famotidine 20 mg 09/28/18 22:00 09/29/18 09:10 Pepcid IV 20 mg BID OMAYRA Administration Heparin Sodium (Porcine) 5,000 unit 09/29/18 10:00 Heparin SUB-Q Q12HR OMAYRA Cefepime HCl 2 gm in 100 mls @ 200 mls/hr 09/28/18 22:00 09/29/18 14:10 Maxipime/Ns 2 Gm/100 Ml IV 200 mls/hr Q8HR OMAYRA Administration Protocol Dextrose 1,000 mls @ 100 mls/hr 09/29/18 07:00 09/29/18 09:25 D5w IV 100 mls/hr DIRECT OMAYRA Administration Vancomycin HCl 750 mg/ Sodium 265 mls @ 166.667 mls/hr 09/29/18 10:00 09/29/18 11:10 Chloride IV 166.667 mls/hr Q12HR OMAYRA Administration Morphine Sulfate 2 mg 09/28/18 19:50 Morphine IV Q4H PRN Pain, Moderate (4-6) Ondansetron HCl 4 mg 09/28/18 19:50 Zofran IV Q3H PRN Nausea And Vomiting Sodium Chloride 10 ml 09/28/18 22:00 09/29/18 09:21 Sodium Chloride Flush Syringe 10 Ml IV 10 ml BID OMAYRA Administration Sodium Chloride 10 ml 09/28/18 19:50 Sodium Chloride Flush Syringe 10 Ml IV PRN PRN LINE FLUSH Tamsulosin HCl 0.4 mg 09/29/18 10:00 09/29/18 10:05 Flomax PO 0.4 mg QDAY OMAYRA Administration
--- NOTE | 2018-09-29 19:53 | Consultation ---
History of Present Illness - History of Present Illness 77 year old admitted with medical history significant for Parkinson's disease, dementia, BPH from [facility] with concern for altered mental status labs significant for acute kidney injury and multiple endocrine abnormalities including hypernatremia patient received intravenous fluids on admission with improvement in renal function still has electrolytes abnormalities He is currently receiving treatment for sepsis secondary to possible UTI/pneumonia Review of systems Limited Past History Past Medical History: other (Parkinson's dementia) Medications and Allergies Allergies Allergy/AdvReac Type Severity Reaction Status Date / Time haloperidol [From Haldol] Allergy Unknown Verified 09/28/18 10:54 morphine Allergy Unknown Verified 09/28/18 10:54 promethazine [From Phenergan] Allergy Unknown Verified 09/28/18 10:54 Active Meds: Active Medications Acetaminophen (Tylenol) 650 mg PO Q4H PRN PRN Reason: Pain MILD(1-3)/Fever >100.5/CHACKO Carbidopa/Levodopa (Sinemet) 1 each PO TID [facility] Last Admin: 09/29/18 14:06 Dose: 1 each Documented by: Famotidine (Pepcid) 20 mg IV BID [facility] Last Admin: 09/29/18 09:10 Dose: 20 mg Documented by: Heparin Sodium (Porcine) (Heparin) 5,000 unit SUB-Q Q12HR [facility] Last Admin: 09/29/18 10:49 Dose: 5,000 unit Documented by: Cefepime HCl (Maxipime/Ns 2 Gm/100 Ml) 2 gm in 100 mls @ 200 mls/hr IV Q8HR [facility]; Protocol Last Admin: 09/29/18 14:10 Dose: 200 mls/hr Documented by: Vancomycin HCl 750 mg/ Sodium (Chloride) 265 mls @ 166.667 mls/hr IV Q12HR [facility] Last Admin: 09/29/18 11:10 Dose: 166.667 mls/hr Documented by: Dextrose (D5w) 1,000 mls @ 150 mls/hr IV DIRECT [facility] Morphine Sulfate (Morphine) 2 mg IV Q4H PRN PRN Reason: Pain, Moderate (4-6) Ondansetron HCl (Zofran) 4 mg IV Q3H PRN PRN Reason: Nausea And Vomiting Sodium Chloride (Sodium Chloride Flush Syringe 10 Ml) 10 ml IV BID [facility] Last Admin: 09/29/18 09:21 Dose: 10 ml Documented by: Sodium Chloride (Sodium Chloride Flush Syringe 10 Ml) 10 ml IV PRN PRN PRN Reason: LINE FLUSH Tamsulosin HCl (Flomax) 0.4 mg PO QDAY OMAYRA Last Admin: 09/29/18 10:05 Dose: 0.4 mg Documented by: Review of Systems ROS unobtainable: due to mental status Constitutional: no weight loss, no weight gain, no fever, no chills Ears, nose, mouth and throat: no deferred, no ear pain Cardiovascular: no chest pain, no orthopnea Respiratory: no cough, no cough with sputum Genitourinary Male: no dysuria, no hematuria Musculoskeletal: no neck stiffness, no neck pain Integumentary: no deferred, no rash Psychiatric: no anxiety, no memory loss Endocrine: no cold intolerance, no heat intolerance Hematologic/Lymphatic: no easy bruising, no easy bleeding Allergic/Immunologic: no urticaria Exam - Vital Signs Vital signs: Vital Signs Temp Pulse Resp BP Pulse Ox 103.7 F H 118 H 31 H 95/56 93 09/28/18 10:50 09/28/18 10:50 09/28/18 10:50 09/28/18 10:50 09/28/18 10:50 - General Appearance General appearance: cachectic, chronically ill, frail EENT: ATNC, PERRL, mucous membranes moist Neck: Present: neck supple Respiratory: Clear to Ascultation Heart: regular, S1S2 Gastrointestinal: Present: normal, normoactive bowel sounds Integumentary: no rash Neurologic: confused, other (contractures) Musculoskeletal: Absent: cyanosis Psychiatric: mood/affect appropriate Results - Lab Results 09/29/18 04:42 09/30/18 04:33 Most recent lab results Calcium 8.2 mg/dL (8.4-10.2) L 09/29/18 04:42 Laboratory Tests 09/28/18 09/28/18 09/28/18 12:23 14:46 15:40 Sodium Chloride BUN Creatinine 1.7 H Lactic Acid 5.40 H* 3.90 H* 09/29/18 04:42 Sodium 160 H Chloride 126.8 H BUN 47 H Creatinine Lactic Acid - Image Kidney/bladder ultrasound: other (I reviewed chest x-ray with left upper lobe patchy opacity) Assessment and Plan - Patient Problems (1) Acute hypernatremia Current Visit: Yes Status: Acute Plan to address problem: Acute hypernatremia in the setting of dehydration and decreased free water intake Was initially admitted with hypovolemia which has now been corrected with saline infusion Will aim not to correct sodium levels more than 8mEq in 24 hours Continue hypotonic infusion D5 water at 150 mL an hour Recheck renal function panel (2) Sepsis Current Visit: Yes Status: Acute Plan to address problem: Sepsis improving chest x-ray reviewed with left lung opacity Continue antibiotics and infectious disease on board (3) Acute renal insufficiency Current Visit: Yes Status: Acute Plan to address problem: Acute renal insufficiency resolved secondary to sepsis and dehydration Creatinine was 1.7 mg/dl Currently improved to 0.8 mg/dl received intravenous fluids Creatinine at baseline continue IV fluids (4) KRISTIE (acute kidney injury) Current Visit: Yes Status: Acute (5) Lactic acidosis Current Visit: Yes Status: Acute Plan to address problem: Lactic acidosis is resolving Trend lactic levels
[2018-09-29] MEDS: D5W 1,000 ML IV SCH (20:44)
[2018-09-30] MEDS: MAXIPIME/NS 2 GM/100 ML 2 GM/100 ML BAG IV SCH ×3 (05:22→21:42)
[2018-09-30 06:06] LABS: BUN/Creatinine Ratio TNR; Blood Urea Nitrogen TNR mg/dL (9-20); Calcium TNR mg/dL (8.4-10.2); Hemolysis Index TNR
[2018-09-30] MEDS: D5W 1,000 ML IV SCH ×2 (06:35→17:50)
--- NOTE | 2018-09-30 08:38 | Progress Note ---
Assessment and Plan Severe sepsis with UTI, PNA - cont abx, fup cx, ID input appreciated Hypotension, POA - likely from sepsis, resolved with Iv fluid Left lower lobe pneumonia, could be due to aspiration - Continue to treat with antibiotics ACUTE ON CHRONIC ENCEPHALOPATHY - likely from sepsis and hypernatremia hypernatremia due to free water deficit/KRISTIE due to ATN versus possible neuropathy -had episodes of hypotension that responded to IVF -free water deficit calculated at 3.8L - cont hypotonic IVF, KRISTIE resolved, Na today is 152 -nephrology consulted Coag negative bacteremia, likely contamination - Continue vancomycin for now, repeat blood culture severe malnutrition -innersole maker consulted, continue D5 IV fluid BPH (benign prostatic hyperplasia) - Flomax 0.4 mg po qd when can tolerate by mouth Parkinson disease - On Sinemet now on hold as patient cannot take by mouth DVT prophylaxis On Heparin and GI prophylaxis Brief HISTORY: CC; Fever amd AMS for 1 day 77-year-old male with a past history of dementia, htn, PD, BPH, glaucoma and Parkinson's disease presents from [facility] with altered mental status and fever. Hospitalist physical: General appearance: somnolent no follows commands Eyes: anicteric sclerae, moist conjunctivae; no lid-lag; PERRLA HENT: Atraumatic; oropharynx limited Neck: Trachea midline; supple, no thyromegaly or lymphadenopathy Lungs: decreased BS dolly CV: RRR no murmur Abdomen: Soft, non-tender; no masses or hepatosplenomegaly Extremities: no edema, contracted Skin: stage I-II sacral not infected Psych: no agitated. Neuro: somnolent no follows commands Subjective Date of service: 09/30/18 Interval history: Patient seen and examined. Medical records and medication list reviewed. No acute event overnight noted by the RN. Patient appears lethargic, does not follow any commands or open his eyes Discussed plan of care at bedside with patient's RN. Objective - Constitutional Vitals: Vital Signs - 12hr 09/29/18 09/29/18 09/30/18 20:48 22:00 00:00 Temperature 100.1 F H Pulse Rate 93 H Respiratory 27 H Rate O2 Sat by Pulse 100 100 Oximetry 09/30/18 04:00 Temperature 99.7 F H Pulse Rate Respiratory 25 H Rate O2 Sat by Pulse 100 Oximetry - Labs CBC & Chem 7: 10/01/18 05:22 10/02/18 04:42 Labs: Abnormal lab results 09/29/18 Range/Units 12:49 POC Glucose 145 H (70-105)
[2018-09-30] MEDS: SINEMET PO SCH ×3 (09:00→21:45)
[2018-09-30] MEDS: VANCOMYCIN 750 MG in NACL 0.9% 250ML 250 ML IV SCH ×2 (10:37→22:15)
[2018-09-30] MEDS: FLOMAX PO SCH (10:38)
[2018-09-30] MEDS: PEPCID IV SCH ×2 (10:38→21:39)
[2018-09-30] MEDS: HEPARIN SUB-Q SCH ×2 (10:38→21:39)
[2018-09-30] MEDS: SODIUM CHLORIDE FLUSH SYRINGE 10 ML IV SCH ×2 (10:40→21:44)
--- NOTE | 2018-09-30 10:42 | Progress Note ---
Assessment and Plan Cultures: Blood cultures 09/28/2018 GPC in clusters 2 of 4 bottles Urine cultures 09/28/2018 no growth Assessment: 77 y/o male with history of dementia and Parkinson's disease, admitted on 09/28/2018 due to alteration mental status and fever 102.9: 1) Severe Sepsis: still low grade fever, leukocytosis better. Etiology most likely due to HCAP +/- UTI. Blood cultures 09/28/2018 no growth so far. 2) HCAP: ? Staph. CXR shows confluent airspace disease retrocardiac and LLL. 3) GPC bacteremia: likely Staph bacteremia? source lung. 3) UTI: UA with 10 wbc, trace LE. currently being treated for a UTI at [facility] with ceftriaxone IV D3 of 5. He has a juarez ? brought it from [place]. Noted juarez cath, draining clear, light claudia urine on arrival to the ED. 4) Acute respiratory failure: on venturi mask 5) KRISTIE: better. Recommendations: - follow-up blood cultures ID and MICs - repeat blood cultures today - obtain TTE - continue cefepime 2 g IV q8h and vancomycin with PK consult D3 of 7 - check MRSA Screening Will follow. Ana Luisa Pedro MD Infectious Diseases Social Sciences Instructor [facility] M [phone] O [phone] Subjective Date of service: 09/30/18 Objective - Exam Narrative Exam: General appearance: somnolent no follows commands Eyes: anicteric sclerae, moist conjunctivae; no lid-lag; PERRLA HENT: Atraumatic; oropharynx limited Neck: Trachea midline; supple, no thyromegaly or lymphadenopathy Lungs: decreased BS dolly CV: RRR no murmur Abdomen: Soft, non-tender; no masses or hepatosplenomegaly Extremities: no edema, contracted Skin: stage I-II sacral not infected Psych: no agitated. Neuro: somnolent no follows commands - Constitutional Vitals: Vital Signs Temp Pulse Resp BP Pulse Ox 99.0 F 93 H 25 H 104/57 95 09/30/18 08:00 09/29/18 22:00 09/30/18 04:00 09/28/18 17:11 09/30/18 08:58 Temperature -Last 24 Hours Temperature 99.0 F Temperature 99.7 F Temperature 100.1 F Temperature 99.5 F Temperature 98.4 F - Labs CBC & Chem 7: 09/29/18 04:42 09/30/18 04:33 Labs: Abnormal lab results 09/29/18 Range/Units 12:49 POC Glucose 145 H (70-105)
[2018-09-30 13:13] LABS: BUN/Creatinine Ratio 45; Blood Urea Nitrogen 27 mg/dL (9-20); Calcium 8.2 mg/dL (8.4-10.2); Hemolysis Index 5
--- NOTE | 2018-09-30 13:44 | Progress Note ---
Assessment and Plan - Patient Problems (1) Acute hypernatremia Current Visit: Yes Status: Acute Plan to address problem: Acute hypernatremia in the setting of dehydration and decreased free water intake Was initially admitted with hypovolemia which has now been corrected with saline infusion Will aim not to correct sodium levels more than 8mEq in 24 hours Continue hypotonic infusion D5 water at 150 mL an hour Recheck renal function panel (2) Sepsis Current Visit: Yes Status: Acute Plan to address problem: Sepsis improving chest x-ray reviewed with left lung opacity Continue antibiotics and infectious disease on board (3) Acute renal insufficiency Current Visit: Yes Status: Acute Plan to address problem: Acute renal insufficiency resolved secondary to sepsis and dehydration Creatinine was 1.7 mg/dl Currently improved to 0.6 mg/dl received intravenous fluids Creatinine at baseline continue IV fluids (4) Lactic acidosis Current Visit: Yes Status: Acute Plan to address problem: Lactic acidosis is resolving Trend lactic levels Subjective Interval history: 77 year old admitted with medical history significant for Parkinson's disease, dementia, BPH from [facility] with concern for altered mental status labs significant for acute kidney injury and multiple endocrine abnormalities including hypernatremia patient received intravenous fluids on admission with improvement in renal function still has electrolytes abnormalities Patient seen today remains confused. Reasonable urine output Blood pressure is borderline Review of systems unobtainable due to patient's mental status Objective - Vital Signs Vital signs: Vital Signs - 12hr 09/30/18 09/30/18 09/30/18 04:00 08:00 08:58 Temperature 99.7 F H 99.0 F Pulse Rate Respiratory 25 H Rate O2 Sat by Pulse 100 95 Oximetry 09/30/18 09/30/18 10:00 12:00 Temperature 99.4 F Pulse Rate 75 Respiratory Rate O2 Sat by Pulse Oximetry - General Appearance General appearance: well-developed, well-nourished, appears stated age EENT: ATNC, PERRL Neck: no JVD, JVD Respiratory: Present: Clear to Ascultation, Non-productive Cough Cardiology: regular, S1S2 Gastrointestinal: normal, normoactive bowel sounds Integumentary: no rash Neurologic: alert and oriented x3, CN 3-12 intact Musculoskeletal: deferred Psychiatric: mood/affect appropriate - Lab 09/29/18 04:42 09/30/18 11:59 Most recent lab results Calcium 8.2 mg/dL (8.4-10.2) L 09/30/18 11:59 Medications & Allergies - Medications Allergies/Adverse Reactions: Allergies haloperidol [From Haldol] Allergy (Verified 09/28/18 10:54) Unknown morphine Allergy (Verified 09/28/18 10:54) Unknown promethazine [From Phenergan] Allergy (Verified 09/28/18 10:54) Unknown Active Medications: Generic Name Dose Route Start Last Admin Trade Name Freq PRN Reason Stop Dose Admin Acetaminophen 650 mg 09/28/18 19:50 Tylenol PO Q4H PRN Pain MILD(1-3)/Fever >100.5/CHACKO Carbidopa/Levodopa 1 each 09/29/18 08:00 09/30/18 09:00 Sinemet PO 1 each TID OMAYRA Administration Famotidine 20 mg 09/28/18 22:00 09/30/18 10:38 Pepcid IV 20 mg BID OMAYRA Administration Heparin Sodium (Porcine) 5,000 unit 09/29/18 10:00 09/30/18 10:38 Heparin SUB-Q 5,000 unit Q12HR OMAYRA Administration Cefepime HCl 2 gm in 100 mls @ 200 mls/hr 09/28/18 22:00 09/30/18 05:22 Maxipime/Ns 2 Gm/100 Ml IV 200 mls/hr Q8HR OMAYRA Administration Protocol Vancomycin HCl 750 mg/ Sodium 265 mls @ 166.667 mls/hr 09/29/18 10:00 09/30/18 10:37 Chloride IV 166.667 mls/hr Q12HR OMAYRA Administration Dextrose 1,000 mls @ 150 mls/hr 09/29/18 20:00 09/30/18 06:35 D5w IV 150 mls/hr DIRECT OMAYRA Administration Morphine Sulfate 2 mg 09/28/18 19:50 Morphine IV Q4H PRN Pain, Moderate (4-6) Ondansetron HCl 4 mg 09/28/18 19:50 Zofran IV Q3H PRN Nausea And Vomiting Sodium Chloride 10 ml 09/28/18 22:00 09/30/18 10:40 Sodium Chloride Flush Syringe 10 Ml IV 10 ml BID OMAYRA Administration Sodium Chloride 10 ml 09/28/18 19:50 Sodium Chloride Flush Syringe 10 Ml IV PRN PRN LINE FLUSH Tamsulosin HCl 0.4 mg 09/29/18 10:00 09/30/18 10:38 Flomax PO 0.4 mg QDAY OMAYRA Administration
[2018-09-30] MEDS ORDERED: D5W 1,000 ML IV SCH (16:00)
[2018-10-01] MEDS: MAXIPIME/NS 2 GM/100 ML 2 GM/100 ML BAG IV SCH ×3 (05:35→21:17)
[2018-10-01] MEDS: D5W 1,000 ML IV SCH ×2 (05:42→09:41)
[2018-10-01 06:03] LABS: Hematocrit 28.6 % (35.5-45.6); Hemoglobin 9.6 gm/dl (11.8-15.2)
[2018-10-01 06:30] LABS: BUN/Creatinine Ratio 33; Blood Urea Nitrogen 20 mg/dL (9-20); Hemolysis Index 2
--- NOTE | 2018-10-01 09:38 | Progress Note ---
Assessment and Plan Cultures: Blood cultures 09/28/2018 CoNS 2 of 4 bottles from different sets Urine cultures 09/28/2018 no growth Assessment: 77 y/o male with history of dementia and Parkinson's disease, admitted on 09/28/2018 due to alteration mental status and fever 102.9: 1) Severe Sepsis: resolved. Etiology most likely due to HCAP +/- UTI. 2) HCAP: ? Staph. CXR shows confluent airspace disease retrocardiac and LLL. 3) CoNS bacteremia: possibly a contaminant. 3) UTI: UA with 10 wbc, trace LE. he was treated for a UTI at [facility] with ceftriaxone IV D3 of 5 by the time he was admitted. He has a juarez ? brought it from [place]. Noted juarez cath, draining clear, light claudia urine on arrival to the ED. Juarez removed 4) Acute respiratory failure: on venturi mask 5) KRISTIE: better. Recommendations: - repeat blood cultures today - obtain TTE - pending - continue cefepime 2 g IV q8h and vancomycin with PK consult D4 of 7 - check MRSA Screening - pending Will follow. Ana Luisa Pedro MD Infectious Diseases Sap [employer] Developer [facility] M [phone] O [phone] Subjective Date of service: 10/01/18 Objective - Constitutional Vitals: Vital Signs Temp Pulse Resp BP Pulse Ox 99.5 F 78 21 104/57 99 10/01/18 07:47 09/30/18 22:00 10/01/18 08:00 09/28/18 17:11 10/01/18 04:00 Temperature -Last 24 Hours Temperature 99.5 F Temperature 99.0 F Temperature 99.5 F Temperature 99.7 F Temperature 99.4 F - Labs CBC & Chem 7: 10/01/18 05:22 10/01/18 05:22 Labs: Abnormal lab results 09/30/18 09/30/18 09/30/18 Range/Units 11:59 12:04 18:00 Hgb (11.8-15.2) gm/dl Hct (35.5-45.6) % Sodium 152 H (137-145) mmol/L Potassium 3.5 L (3.6-5.0) mmol/L Chloride 116.3 H (98-107) mmol/L BUN 27 H (9-20) mg/dL Creatinine 0.6 L (0.8-1.5) mg/dL Glucose 107 H (75-100) mg/dL POC Glucose 120 H 153 H (70-105) Calcium 8.2 L (8.4-10.2) mg/dL 10/01/18 10/01/18 Range/Units 05:22 05:22 Hgb 9.6 L (11.8-15.2) gm/dl Hct 28.6 L (35.5-45.6) % Sodium (137-145) mmol/L Potassium 3.4 L (3.6-5.0) mmol/L Chloride 109.0 H (98-107) mmol/L BUN (9-20) mg/dL Creatinine 0.6 L (0.8-1.5) mg/dL Glucose 119 H (75-100) mg/dL POC Glucose (70-105) Calcium 8.0 L (8.4-10.2) mg/dL
[2018-10-01] MEDS: FLOMAX PO SCH (09:41)
[2018-10-01] MEDS: HEPARIN SUB-Q SCH ×2 (09:41→21:18)
[2018-10-01] MEDS: SINEMET PO SCH ×3 (09:41→20:26)
[2018-10-01] MEDS: SODIUM CHLORIDE FLUSH SYRINGE 10 ML IV SCH ×2 (09:42→21:20)
[2018-10-01] MEDS: PEPCID IV SCH ×2 (09:42→21:18)
--- NOTE | 2018-10-01 10:20 | Progress Note ---
Assessment and Plan - Patient Problems (1) Acute hypernatremia Current Visit: Yes Status: Acute Plan to address problem: Acute hypernatremia in the setting of dehydration and decreased free water intake resolving Was initially admitted with hypovolemia which has now been corrected with saline infusion Will aim not to correct sodium levels more than 8mEq in 24 hours Reduce hypotonic infusion D5 water at 75mL an hour Recheck renal function panel (2) Sepsis Current Visit: Yes Status: Acute Plan to address problem: Sepsis improving chest x-ray reviewed with left lung opacity Blood cultures with coagulase negative staph Continue antibiotics and infectious disease on board (3) Acute renal insufficiency Current Visit: Yes Status: Acute Plan to address problem: Acute renal insufficiency resolved secondary to sepsis and dehydration Creatinine was 1.7 mg/dl Currently improved to 0.6 mg/dl received intravenous fluids Creatinine at baseline continue IV fluids (4) Lactic acidosis Current Visit: Yes Status: Acute Plan to address problem: Lactic acidosis is resolving Trend lactic levels Subjective Interval history: 77 year old admitted with medical history significant for Parkinson's disease, dementia, BPH from [facility] with concern for altered mental status labs significant for acute kidney injury and multiple endocrine abnormalities including hypernatremia patient received intravenous fluids on admission with improvement in renal function still has electrolytes abnormalities Patient seen today remains confused. Reasonable urine output Blood cultures positive for staph aureus Review of systems unobtainable due to patient's mental status Objective - Vital Signs Vital signs: Vital Signs - 12hr 10/01/18 10/01/18 10/01/18 00:00 04:00 07:47 Temperature 99.5 F 99.0 F 99.5 F Respiratory 20 21 Rate O2 Sat by Pulse 98 99 Oximetry 10/01/18 08:00 Temperature Respiratory 21 Rate O2 Sat by Pulse Oximetry - General Appearance General appearance: chronically ill, frail EENT: ATNC, PERRL Neck: no JVD Respiratory: Present: Clear to Ascultation Cardiology: regular, S1S2 Gastrointestinal: normal, normoactive bowel sounds Integumentary: no rash Neurologic: confused, CN 3-12 intact Musculoskeletal: deferred Psychiatric: mood/affect appropriate - Lab 10/01/18 05:22 10/01/18 05:22 Most recent lab results Calcium 8.0 mg/dL (8.4-10.2) L 10/01/18 05:22 - Imaging Chest x-ray: image reviewed Medications & Allergies - Medications Allergies/Adverse Reactions: Allergies haloperidol [From Haldol] Allergy (Verified 09/28/18 10:54) Unknown morphine Allergy (Verified 09/28/18 10:54) Unknown promethazine [From Phenergan] Allergy (Verified 09/28/18 10:54) Unknown Active Medications: Generic Name Dose Route Start Last Admin Trade Name Freq PRN Reason Stop Dose Admin Acetaminophen 650 mg 09/28/18 19:50 Tylenol PO Q4H PRN Pain MILD(1-3)/Fever >100.5/CHACKO Carbidopa/Levodopa 1 each 09/29/18 08:00 10/01/18 09:41 Sinemet PO Not Given TID OMAYRA Famotidine 20 mg 09/28/18 22:00 10/01/18 09:42 Pepcid IV 20 mg BID OMAYRA Administration Heparin Sodium (Porcine) 5,000 unit 09/29/18 10:00 10/01/18 09:41 Heparin SUB-Q 5,000 unit Q12HR OMAYRA Administration Cefepime HCl 2 gm in 100 mls @ 200 mls/hr 09/28/18 22:00 10/01/18 05:35 Maxipime/Ns 2 Gm/100 Ml IV 200 mls/hr Q8HR OMAYRA Administration Protocol Vancomycin HCl 750 mg/ Sodium 265 mls @ 166.667 mls/hr 09/29/18 10:00 09/30/18 22:15 Chloride IV 166.667 mls/hr Q12HR OMAYRA Administration Dextrose 1,000 mls @ 75 mls/hr 09/29/18 20:00 10/01/18 09:41 D5w IV 150 mls/hr DIRECT OMAYRA Administration Morphine Sulfate 2 mg 09/28/18 19:50 Morphine IV Q4H PRN Pain, Moderate (4-6) Ondansetron HCl 4 mg 09/28/18 19:50 Zofran IV Q3H PRN Nausea And Vomiting Sodium Chloride 10 ml 09/28/18 22:00 10/01/18 09:42 Sodium Chloride Flush Syringe 10 Ml IV 10 ml BID OMAYRA Administration Sodium Chloride 10 ml 09/28/18 19:50 Sodium Chloride Flush Syringe 10 Ml IV PRN PRN LINE FLUSH Tamsulosin HCl 0.4 mg 09/29/18 10:10/01/18 09:41 Flomax PO Not Given QDAY OMAYRA
[2018-10-01] MEDS: VANCOMYCIN 750 MG in NACL 0.9% 250ML 250 ML IV SCH ×2 (13:35→21:17)
--- NOTE | 2018-10-01 14:24 | XRay Report ---
AP ABDOMEN: HISTORY: Feeding tube placement. The feeding tube terminates in the body of the stomach. The abdominal gas pattern is unremarkable. No masses or organomegaly is identified and there is no gross evidence of free air or fluid. No significant soft tissue calcifications are noted. IMPRESSION: Unremarkable abdomen.
--- NOTE | 2018-10-01 15:36 | Progress Note ---
Assessment and Plan Acute hypoxic respiratory failure, present on admission - Likely from underlying pneumonia, continue antibiotics Severe sepsis with UTI, PNA - cont abx, fup final cx, ID input appreciated - repeat blood culture ordered Hypotension, POA - likely from sepsis, resolved with Iv fluid Left lower lobe pneumonia, could be due to aspiration - Continue to treat with antibiotics ACUTE ON CHRONIC ENCEPHALOPATHY - likely from sepsis and hypernatremia hypernatremia due to free water deficit/KRISTIE due to ATN versus possible neuropathy -had episodes of hypotension that responded to IVF - cont hypotonic IVF, KRISTIE resolved, hyponatremia resolved -nephrology following the patient Coag negative bacteremia, likely contamination - Continue vancomycin for now, repeat blood culture severe malnutrition -comb tender consulted, continue D5 IV fluid - Patient failed speech eval, will place on Dobbhoff tube for Tube feeding - We will repeat speech eval when mental status much improved BPH (benign prostatic hyperplasia) - Start on Flomax 0.4 mg with tube feeding daily Parkinson disease -Start on Sinemet with tube feeding DVT prophylaxis On Heparin and GI prophylaxis Brief HISTORY: CC; Fever amd AMS for 1 day 77-year-old male with a past history of dementia, htn, PD, BPH, glaucoma and Parkinson's disease presents from [facility] with altered mental status and fever. Hospitalist physical: General appearance: Patient is alert but follows commands Eyes: anicteric sclerae, moist conjunctivae; no lid-lag; PERRLA HENT: Atraumatic; oropharynx limited Neck: Trachea midline; supple, no thyromegaly or lymphadenopathy Lungs: decreased BS dolly CV: RRR no murmur Abdomen: Soft, non-tender; no masses or hepatosplenomegaly Extremities: no edema, contracted Skin: stage I-II sacral not infected Psych: no agitated. Neuro: Open eyes, nonverbal, does not follow any command Subjective Date of service: 10/01/18 Interval history: Patient seen and examined. Medical records and medication list reviewed. No acute event overnight noted by the RN. Patient appears more alert today and able to open his eyes, but unable to communicate verbally Discussed plan of care at bedside with patient's RN. Objective - Constitutional Vitals: Vital Signs - 12hr 10/01/18 10/01/18 10/01/18 04:00 07:47 08:00 Temperature 99.0 F 99.5 F Respiratory 21 21 Rate O2 Sat by Pulse 99 Oximetry 10/01/18 10/01/18 10/01/18 11:00 11:35 12:00 Temperature 99.1 F Respiratory Rate O2 Sat by Pulse 99 97 Oximetry - Labs CBC & Chem 7: 10/01/18 05:22 10/02/18 04:42 Labs: Abnormal lab results 09/30/18 10/01/18 10/01/18 Range/Units 18:00 05:22 05:22 Hgb 9.6 L (11.8-15.2) gm/dl Hct 28.6 L (35.5-45.6) % Potassium 3.4 L (3.6-5.0) mmol/L Chloride 109.0 H (98-107) mmol/L Creatinine 0.6 L (0.8-1.5) mg/dL Glucose 119 H (75-100) mg/dL POC Glucose 153 H (70-105) Calcium 8.0 L (8.4-10.2) mg/dL
[2018-10-01] MEDS ORDERED: SODIUM BICARBONATE FEEDTUBE PRN (16:01)
[2018-10-01] MEDS ORDERED: SIMPLE SYRUP FEEDTUBE PRN ×2 (16:01)
[2018-10-01] MEDS ORDERED: PANCREAZE DR 10,500 UNIT FEEDTUBE PRN (16:01)
[2018-10-01] MEDS ORDERED: POTASSIUM CHLORIDE FEEDTUBE NR (17:22)
[2018-10-02] MEDS: D5W 1,000 ML IV SCH ×2 (04:44→22:11)
[2018-10-02 05:29] LABS: BUN/Creatinine Ratio 28; Blood Urea Nitrogen 17 mg/dL (9-20); Calcium 7.6 mg/dL (8.4-10.2); Hemolysis Index 30
--- NOTE | 2018-10-02 08:19 | Progress Note ---
Assessment and Plan Cultures: Blood cultures 09/28/2018 CoNS 2 of 4 bottles from different sets Urine cultures 09/28/2018 no growth Blood cultures 10/01/2018 no growth today Assessment: 77 y/o male with history of dementia and Parkinson's disease, admitted on 09/28/2018 due to alteration mental status and fever 102.9: 1) Severe Sepsis: resolved. Etiology most likely due to HCAP +/- UTI. 2) HCAP: ? Staph. CXR shows confluent airspace disease retrocardiac and LLL. 3) CoNS bacteremia: possibly a contaminant. 3) UTI: UA with 10 wbc, trace LE. he was treated for a UTI at [facility] with ceftriaxone IV D3 of 5 by the time he was admitted. He has a juarez ? brought it from [place]. Noted juarez cath, draining clear, light claudia urine on arrival to the ED. Juarez removed 4) Acute respiratory failure: on venturi mask 5) KRISTIE: better. Recommendations: - repeat blood cultures today - obtain TTE - pending - continue cefepime 2 g IV q8h and vancomycin with PK consult D4 of 7 - check MRSA Screening - pending Will follow. Ana Luisa Pedro MD Infectious Diseases [employer] [facility] M [phone] O [phone] Subjective Date of service: 10/02/18 Principal diagnosis: sepsis Interval history: Remains Objective - Exam Narrative Exam: General appearance: somnolent no follows commands Eyes: anicteric sclerae, moist conjunctivae; no lid-lag; PERRLA HENT: Atraumatic; oropharynx limited Neck: Trachea midline; supple, no thyromegaly or lymphadenopathy Lungs: decreased BS dolly CV: RRR no murmur Abdomen: Soft, non-tender; no masses or hepatosplenomegaly Extremities: no edema, contracted Skin: stage I-II sacral not infected Psych: no agitated. Neuro: somnolent no follows commands - Constitutional Vitals: Vital Signs Temp Pulse Resp BP Pulse Ox 98.8 F 80 21 104/57 97 10/02/18 04:05 10/01/18 22:00 10/01/18 04:00 09/28/18 17:11 10/01/18 11:35 Temperature -Last 24 Hours Temperature 98.8 F Temperature 98.8 F Temperature 99.1 F Temperature 98.7 F Temperature 98.8 F Temperature 99.1 F - Labs CBC & Chem 7: 10/01/18 05:22 10/02/18 04:42 Labs: Abnormal lab results 10/02/18 Range/Units 04:42 Potassium 3.3 L (3.6-5.0) mmol/L Creatinine 0.6 L (0.8-1.5) mg/dL Glucose 123 H (75-100) mg/dL Calcium 7.6 L (8.4-10.2) mg/dL
[2018-10-02] MEDS: MAXIPIME/NS 2 GM/100 ML 2 GM/100 ML BAG IV SCH ×3 (08:22→22:09)
--- NOTE | 2018-10-02 09:29 | Progress Note ---
Assessment and Plan - Patient Problems (1) Acute hypernatremia Current Visit: Yes Status: Acute Plan to address problem: Acute hypernatremia in the setting of dehydration and decreased free water intake resolved. Was initially admitted with hypovolemia which has now been corrected with saline infusion Will aim not to correct sodium levels more than 8mEq in 24 hours continue hypotonic infusion D5 water at 75mL an hour Recheck renal function panel (2) Sepsis Current Visit: Yes Status: Acute Plan to address problem: Sepsis improving chest x-ray reviewed with left lung opacity Blood cultures with coagulase negative staph Continue antibiotics and infectious disease on board (3) Acute renal insufficiency Current Visit: Yes Status: Acute Plan to address problem: Acute renal insufficiency resolved secondary to sepsis and dehydration:Resolved. Creatinine was 1.7 mg/dl Currently improved to 0.6 mg/dl received intravenous fluids Creatinine at baseline continue IV fluids (4) Hypokalemia Current Visit: Yes Status: Acute Plan to address problem: Hypokalemia: Will give 40meq Kcl IV . (5) Lactic acidosis Current Visit: Yes Status: Acute Plan to address problem: Lactic acidosis is resolving Trend lactic levels We will sign off Thank you for allowing us participate in his care. Subjective Principal diagnosis: sepsis Interval history: 77 year old admitted with medical history significant for Parkinson's disease, dementia, BPH from [facility] with concern for altered mental status labs significant for acute kidney injury and multiple endocrine abnormalities including hypernatremia patient received intravenous fluids on admission with improvement in renal function still has electrolytes abnormalities Patient seen today remains confused. Reasonable urine output Blood cultures positive for staph aureus Review of systems unobtainable due to patient's mental status Objective - Vital Signs Vital signs: Vital Signs - 12hr 10/01/18 10/02/18 10/02/18 22:00 00:16 04:00 Temperature 99.1 F 98.8 F Pulse Rate 80 O2 Sat by Pulse Oximetry 10/02/18 10/02/18 04:05 08:58 Temperature 98.8 F Pulse Rate O2 Sat by Pulse 97 Oximetry - General Appearance General appearance: well-developed, well-nourished EENT: ATNC, PERRL, mucous membranes moist Neck: no JVD Respiratory: Present: Clear to Ascultation Cardiology: regular, S1S2 Gastrointestinal: normal, normoactive bowel sounds Integumentary: no rash Neurologic: alert and oriented x3, CN 3-12 intact Psychiatric: mood/affect appropriate - Lab 10/01/18 05:22 10/02/18 04:42 Most recent lab results Calcium 7.6 mg/dL (8.4-10.2) L 10/02/18 04:42 Medications & Allergies - Medications Allergies/Adverse Reactions: Allergies haloperidol [From Haldol] Allergy (Verified 09/28/18 10:54) Unknown morphine Allergy (Verified 09/28/18 10:54) Unknown promethazine [From Phenergan] Allergy (Verified 09/28/18 10:54) Unknown Active Medications: Generic Name Dose Route Start Last Admin Trade Name Freq PRN Reason Stop Dose Admin Acetaminophen 650 mg 09/28/18 19:50 Tylenol PO Q4H PRN Pain MILD(1-3)/Fever >100.5/CHACKO Lipase/Protease/Amylase 1 each 10/01/18 16:[address] 10,500 Unit FEEDTUBE PRN PRN For Clogged Feeding Tube Carbidopa/Levodopa 1 each 09/29/18 08:00 10/01/18 20:26 Sinemet PO 1 each TID OMAYRA Administration Famotidine 20 mg 09/28/18 22:00 10/01/18 21:18 Pepcid IV 20 mg BID OMAYRA Administration Heparin Sodium (Porcine) 5,000 unit 09/29/18 10:00 10/01/18 21:18 Heparin SUB-Q 5,000 unit Q12HR OMYARA Administration Vancomycin HCl 750 mg/ Sodium 265 mls @ 166.667 mls/hr 09/29/18 10:00 10/01/18 21:17 Chloride IV 166.667 mls/hr Q12HR OMAYRA Administration Dextrose 1,000 mls @ 75 mls/hr 09/29/18 20:00 10/02/18 04:44 D5w IV 150 mls/hr DIRECT OMAYRA Administration Cefepime HCl 2 gm in 100 mls @ 200 mls/hr 10/01/18 22:00 10/02/18 08:22 Maxipime/Ns 2 Gm/100 Ml IV 200 mls/hr Q8HR OMAYRA Administration Protocol Potassium Chloride 10 meq in 100 mls @ 100 mls/hr 10/02/18 09:00 Kcl 10meq/100ml IV 10/02/18 12:59 Q1H OMAYRA Morphine Sulfate 2 mg 09/28/18 19:50 Morphine IV Q4H PRN Pain, Moderate (4-6) Ondansetron HCl 4 mg 09/28/18 19:50 Zofran IV Q3H PRN Nausea And Vomiting Simple Syrup 15 ml 10/01/18 16:01 Simple Syrup FEEDTUBE PRN PRN Hypoglycemia Simple Syrup 30 ml 10/01/18 16:01 Simple Syrup FEEDTUBE PRN PRN Hypoglycemia Sodium Bicarbonate 325 mg 10/01/18 16:01 Sodium Bicarbonate FEEDTUBE PRN PRN For Clogged Feeding Tube Sodium Chloride 10 ml 09/28/18 22:00 10/01/18 21:20 Sodium Chloride Flush Syringe 10 Ml IV 10 ml BID OMAYRA Administration Sodium Chloride 10 ml 09/28/18 19:50 Sodium Chloride Flush Syringe 10 Ml IV PRN PRN LINE FLUSH Tamsulosin HCl 0.4 mg 09/29/18 10:00 10/01/18 09:41 Flomax PO Not Given QDAY OMAYRA
[2018-10-02] MEDS: VANCOMYCIN 750 MG in NACL 0.9% 250ML 250 ML IV SCH ×2 (11:39→22:12)
[2018-10-02] MEDS: SINEMET PO SCH ×3 (11:42→22:09)
[2018-10-02] MEDS: HEPARIN SUB-Q SCH ×2 (11:42→22:13)
[2018-10-02] MEDS: KCL 10MEQ/100ML 10 MEQ/100 ML BAG IV SCH ×4 (11:42→15:46)
[2018-10-02] MEDS: FLOMAX PO SCH (11:42)
[2018-10-02] MEDS: PEPCID PO SCH ×2 (11:42→22:09)
[2018-10-02] MEDS: SODIUM CHLORIDE FLUSH SYRINGE 10 ML IV SCH ×2 (11:43→22:32)
--- NOTE | 2018-10-02 17:51 | Progress Note ---
Assessment and Plan Acute hypoxic respiratory failure, present on admission - Likely from underlying pneumonia, continue antibiotics Severe sepsis with UTI, PNA - cont abx per ID, fup final cx, ID input appreciated Hypotension, POA - likely from sepsis, resolved with Iv fluid Left lower lobe pneumonia, could be due to aspiration - Continue to treat with antibiotics ACUTE ON CHRONIC ENCEPHALOPATHY - likely from sepsis and hypernatremia hypernatremia due to free water deficit/KRISTIE due to ATN versus possible neuropathy -had episodes of hypotension that responded to IVF - cont hypotonic IVF, KRISTIE resolved, hyponatremia resolved -nephrology following the patient Coag negative bacteremia, likely contamination - repeat blood culture negative severe malnutrition -nurse practitioner consulted, continue D5 IV fluid - Patient failed speech eval, will place on Dobbhoff tube for Tube feeding - We will repeat speech eval when mental status much improved, - discussed with son and he wants to wait for a repeat swallow eval to make a decision for permanent feeding tube like PEG - BPH (benign prostatic hyperplasia) - Start on Flomax 0.4 mg with tube feeding daily Parkinson disease -Start on Sinemet with tube feeding DVT prophylaxis On Heparin and GI prophylaxis Brief HISTORY: CC; Fever amd AMS for 1 day 77-year-old male with a past history of dementia, htn, PD, BPH, glaucoma and Parkinson's disease presents from [facility]note 3] with altered mental status and fever. Hospitalist physical: General appearance: Patient is alert but no follows commands Eyes: anicteric sclerae, moist conjunctivae; no lid-lag; PERRLA HENT: Atraumatic; oropharynx limited Neck: Trachea midline; supple, no thyromegaly or lymphadenopathy Lungs: decreased BS dolly CV: RRR no murmur Abdomen: Soft, non-tender; no masses or hepatosplenomegaly Extremities: no edema, contracted Skin: stage I-II sacral not infected Psych: no agitated. Neuro: Open eyes, nonverbal, does not follow any command Subjective Date of service: 10/02/18 Principal diagnosis: sepsis Interval history: Patient seen and examined. Medical records and medication list reviewed. No acute event overnight noted by the RN. Patient appears more alert today and able to open his eyes, but unable to communicate verbally Discussed plan of care at bedside with patient's RN. Objective - Constitutional Vitals: Vital Signs - 12hr 10/02/18 08:58 O2 Sat by Pulse 97 Oximetry - Labs CBC & Chem 7: 10/01/18 05:22 10/04/18 05:38 Labs: Abnormal lab results 10/02/18 10/02/18 10/02/18 Range/Units 04:42 12:19 17:39 Potassium 3.3 L (3.6-5.0) mmol/L Creatinine 0.6 L (0.8-1.5) mg/dL Glucose 123 H (75-100) mg/dL POC Glucose 186 H 141 H (70-105) Calcium 7.6 L (8.4-10.2) mg/dL
[2018-10-02] MEDS: TYLENOL PO PRN (22:09)
[2018-10-03 05:33] LABS: BUN/Creatinine Ratio 22; Blood Urea Nitrogen 13 mg/dL (9-20); Calcium 7.8 mg/dL (8.4-10.2); Hemolysis Index 10
[2018-10-03] MEDS: MAXIPIME/NS 2 GM/100 ML 2 GM/100 ML BAG IV SCH ×3 (06:01→21:55)
[2018-10-03] MEDS: SINEMET PO SCH ×3 (08:51→21:53)
[2018-10-03] MEDS: PEPCID PO SCH ×2 (09:04→21:54)
[2018-10-03] MEDS: FLOMAX PO SCH (09:04)
[2018-10-03] MEDS: HEPARIN SUB-Q SCH ×2 (09:04→21:58)
[2018-10-03] MEDS: VANCOMYCIN 750 MG in NACL 0.9% 250ML 250 ML IV SCH ×2 (09:04→21:57)
[2018-10-03] MEDS: SODIUM CHLORIDE FLUSH SYRINGE 10 ML IV SCH ×2 (09:04→22:00)
--- NOTE | 2018-10-03 10:59 | Progress Note ---
Assessment and Plan Cultures: Blood cultures 09/28/2018 CoNS 2 of 4 bottles from different sets Urine cultures 09/28/2018 no growth Blood cultures 10/01/2018 no growth today Assessment: 77 y/o male with history of dementia and Parkinson's disease, admitted on 09/28/2018 due to alteration mental status and fever 102.9: 1) Severe Sepsis: resolved. Etiology most likely due to HCAP +/- UTI. 2) HCAP: ? Staph. CXR shows confluent airspace disease retrocardiac and LLL. 3) CoNS bacteremia: possibly a contaminant. 3) UTI: UA with 10 wbc, trace LE. he was treated for a UTI at [facility] with ceftriaxone IV D3 of 5 by the time he was admitted. He has a juarez ? brought it from [place]. Noted juarez cath, draining clear, light claudia urine on arrival to the ED. Juarez removed 4) Acute respiratory failure: on venturi mask 5) KRISTIE: better. Recommendations: - f/u repeat blood cultures - continue cefepime 2 g IV q8h and vancomycin with PK consult D5 of 7 - check MRSA Screening - pending Will follow. Dr Castro is covering the weekend and next week Ana Luisa Pedro MD Infectious Diseases [employer] [facility] M [phone] O [phone] Subjective Date of service: 10/03/18 Principal diagnosis: sepsis Interval history: Slightly more awake today. No fever overnight. Non verbal Objective - Exam Narrative Exam: General appearance: alert no follows commands on NC O2 Eyes: anicteric sclerae, moist conjunctivae; no lid-lag; PERRLA HENT: Atraumatic; oropharynx limited NGT Neck: Trachea midline; supple, no thyromegaly or lymphadenopathy Lungs: decreased BS dolly CV: RRR no murmur Abdomen: Soft, non-tender; no masses or hepatosplenomegaly Extremities: no edema, contracted Skin: stage I-II sacral not infected Psych: no agitated. Neuro: somnolent no follows commands condom cath - Constitutional Vitals: Vital Signs Temp Pulse Resp BP Pulse Ox 98.5 F 101 H 26 H 97/54 96 10/03/18 07:00 10/03/18 10:00 10/03/18 10:00 10/03/18 10:00 10/03/18 10:00 Temperature -Last 24 Hours Temperature 98.5 F Temperature 98.4 F Temperature 99 F Temperature 99.5 F - Labs CBC & Chem 7: 10/01/18 05:22 10/03/18 03:41 Labs: Abnormal lab results 10/02/18 10/02/18 10/03/18 Range/Units 12:19 17:39 03:41 Creatinine 0.6 L (0.8-1.5) mg/dL Glucose 157 H (75-100) mg/dL POC Glucose 186 H 141 H (70-105) Calcium 7.8 L (8.4-10.2) mg/dL 10/03/18 Range/Units 10:09 Creatinine (0.8-1.5) mg/dL Glucose (75-100) mg/dL POC Glucose 151 H (70-105) Calcium (8.4-10.2) mg/dL
[2018-10-03] MEDS: D5W 1,000 ML IV SCH (14:39)
[2018-10-03] MEDS: TYLENOL PO PRN (21:54)
[2018-10-04] MEDS: MAXIPIME/NS 2 GM/100 ML 2 GM/100 ML BAG IV SCH ×2 (05:11→13:56)
[2018-10-04] MEDS: D5W 1,000 ML IV SCH ×2 (05:14→21:05)
[2018-10-04 06:18] LABS: BUN/Creatinine Ratio 22; Blood Urea Nitrogen 11 mg/dL (9-20); Calcium 7.7 mg/dL (8.4-10.2); Hemolysis Index 23
[2018-10-04] MEDS: VANCOMYCIN 750 MG in NACL 0.9% 250ML 250 ML IV SCH ×2 (09:05→21:00)
[2018-10-04] MEDS: HEPARIN SUB-Q SCH ×2 (09:06→21:00)
[2018-10-04] MEDS: FLOMAX PO SCH (09:06)
[2018-10-04] MEDS: PEPCID PO SCH ×2 (09:06→21:00)
[2018-10-04] MEDS: SINEMET PO SCH ×3 (09:07→20:56)
[2018-10-04] MEDS: SODIUM CHLORIDE FLUSH SYRINGE 10 ML IV SCH ×2 (09:08→21:01)
--- NOTE | 2018-10-04 10:31 | Progress Note ---
Assessment and Plan Acute hypoxic respiratory failure, present on admission - Likely from underlying pneumonia, continue antibiotics Severe sepsis with UTI, PNA - cont abx per ID, fup final cx, ID input appreciated Hypotension, POA - likely from sepsis, resolved with Iv fluid Left lower lobe pneumonia, could be due to aspiration - Continue to treat with antibiotics ACUTE ON CHRONIC ENCEPHALOPATHY - likely from sepsis and hypernatremia hypernatremia due to free water deficit/KRISTIE due to ATN versus possible neuropathy -had episodes of hypotension that responded to IVF - cont hypotonic IVF, KRISTIE resolved, hyponatremia resolved -nephrology following the patient Coag negative bacteremia, likely contamination - repeat blood culture negative severe malnutrition -licensed loan officer consulted, continue D5 IV fluid - Patient failed speech eval, cont on Dobbhoff tube for Tube feeding Dysphagia with aspiration risk - Patient failed the swallow study today again, updated patient's son - he stated that he will make that decision in next 24 hours BPH (benign prostatic hyperplasia) - on Flomax 0.4 mg with tube feeding daily Parkinson disease -on Sinemet with tube feeding DVT prophylaxis On Heparin and GI prophylaxis Brief HISTORY: CC; Fever amd AMS for 1 day 77-year-old male with a past history of dementia, htn, PD, BPH, glaucoma and Parkinson's disease presents from [facility] with altered mental status and fever. Hospitalist physical: General appearance: Patient is alert but no follows commands Eyes: anicteric sclerae, moist conjunctivae; no lid-lag; PERRLA HENT: Atraumatic; oropharynx limited Neck: Trachea midline; supple, no thyromegaly or lymphadenopathy Lungs: decreased BS dolly CV: RRR no murmur Abdomen: Soft, non-tender; no masses or hepatosplenomegaly Extremities: no edema, contracted Skin: stage I-II sacral not infected Psych: no agitated. Neuro: Open eyes, nonverbal, does not follow any command Subjective Date of service: 10/03/18 Principal diagnosis: sepsis Interval history: Patient seen and examined. Medical records and medication list reviewed. No acute event overnight noted by the RN. Patient appears more alert but unable to communicate verbally and does not follow any command Patient failed the swallow study today and again, updated patient's son - he stated that he will make decision for PEG tube in next 24 hours Discussed plan of care at bedside with patient's RN. Objective - Constitutional Vitals: Vital Signs - 12hr 06/28/19 06/28/19 06/28/19 22:50 23:00 23:48 Temperature 98.4 F Pulse Rate 93 H 96 H Pulse Rate [ From Monitor] Respiratory 24 19 Rate Blood Pressure 114/65 97/48 O2 Sat by Pulse 95 95 Oximetry 10/04/18 10/04/18 10/04/18 00:00 01:00 02:00 Temperature Pulse Rate 89 79 77 Pulse Rate [ 83 From Monitor] Respiratory 22 20 18 Rate Blood Pressure 108/57 105/61 103/56 O2 Sat by Pulse 95 99 98 Oximetry 10/04/18 10/04/18 10/04/18 03:00 03:55 04:00 Temperature 99.1 F Pulse Rate 75 94 H Pulse Rate [ 89 From Monitor] Respiratory 18 13 Rate Blood Pressure 112/59 115/65 O2 Sat by Pulse 97 95 Oximetry 10/04/18 10/04/18 10/04/18 05:00 06:00 08:00 Temperature 98.2 F Pulse Rate 79 77 79 Pulse Rate [ 77 From Monitor] Respiratory 14 22 16 Rate Blood Pressure 105/55 106/61 O2 Sat by Pulse 97 95 97 Oximetry - Labs CBC & Chem 7: 10/01/18 05:22 10/04/18 05:38 Labs: Abnormal lab results 10/04/18 Range/Units 05:38 Creatinine 0.5 L (0.8-1.5) mg/dL Glucose 132 H (75-100) mg/dL Calcium 7.7 L (8.4-10.2) mg/dL
[2018-10-04] MEDS: TYLENOL PO PRN ×2 (14:31→20:57)
--- NOTE | 2018-10-04 16:03 | Progress Note ---
Assessment and Plan Cultures: Blood cultures 09/28/2018 CoNS 2 of 4 bottles from different sets - Staph hominis Urine cultures 09/28/2018 no growth Blood cultures 10/01/2018 no growth Assessment: 77 y/o male with history of dementia and Parkinson's disease, admitted on 09/28/2018 due to alteration mental status and fever 102.9: 1) Severe Sepsis: resolved. Etiology most likely due to HCAP +/- UTI. 2) HCAP: CXR shows confluent airspace disease retrocardiac and LLL. 3) CoNS bacteremia: possibly a contaminant. Repeat cultures negative. Anyways received Vancomycin. 3) UTI: UA with 10 wbc, trace LE. he was treated for a UTI at [facility] with ceftriaxone IV D3 of 5 by the time he was admitted. He has a juarez ? brought it from [place]. Noted juarez cath, draining clear, light claudia urine on arrival to the ED. Juarez removed. 4) Acute respiratory failure: on oxygen. Improving. 5) KRISTIE: better. Recommendations: - continue cefepime decrease dose to 1 g IV q8h and vancomycin with PK consult D6 of 7 MD [facility] C: [phone] O: [phone] F: [phone] Subjective Date of service: 10/04/18 Principal diagnosis: sepsis Interval history: No fever. Awake. Confused at baseline. History and ROS limited. Objective - Exam Narrative Exam: Physical Exam: Constitutional: awake, alert, no distress Head, Ears, Nose: Normocephalic, atraumatic. External ears, nose normal Eyes: Conjunctivae/corneas clear. No icterus. No ptosis. Neck: Supple, no meningeal signs Cardiovascular: S1, S2 normal. Respiratory: Good air entry, clear to auscultation bilaterally GI: Soft, non-tender; bowel sounds normal. No peritoneal signs Musculoskeletal: No pedal edema, no cyanosis. Skin: No rash or abscess. Stage I-II sacral wound not infected Hem/Lymphatic: No palpable cervical or supraclavicular nodes. No lymphangitis Psych: no agitation Neurological: awake, alert, confused at baseline - Constitutional Vitals: Vital Signs Temp Pulse Resp BP Pulse Ox 98.4 F 93 H 14 91/49 94 10/04/18 12:00 10/04/18 16:00 10/04/18 14:00 10/04/18 14:00 10/04/18 14:00 Temperature -Last 24 Hours Temperature 98.4 F Temperature 98.2 F Temperature 99.1 F Temperature 98.4 F Temperature 99.7 F - Labs CBC & Chem 7: 10/01/18 05:22 10/04/18 05:38 Labs: Abnormal lab results 10/04/18 Range/Units 05:38 Creatinine 0.5 L (0.8-1.5) mg/dL Glucose 132 H (75-100) mg/dL Calcium 7.7 L (8.4-10.2) mg/dL
[2018-10-04] MEDS: MAXIPIME/NS 1 GM/100 ML 1 GM/100 ML BAG IV SCH (17:04)
--- NOTE | 2018-10-04 18:11 | Progress Note ---
Assessment and Plan Acute hypoxic respiratory failure, present on admission - Likely from underlying pneumonia, continue antibiotics Severe sepsis with UTI, PNA - cont abx per ID, fup final cx, ID input appreciated Hypotension, POA - likely from sepsis, resolved with Iv fluid Left lower lobe pneumonia, could be due to aspiration - Continue to treat with antibiotics ACUTE ON CHRONIC ENCEPHALOPATHY - likely from sepsis and hypernatremia hypernatremia due to free water deficit/KRISTIE due to ATN versus possible neuropathy -had episodes of hypotension that responded to IVF - cont hypotonic IVF, KRISTIE resolved, hyponatremia resolved -nephrology following the patient Coag negative bacteremia, likely contamination - repeat blood culture negative severe malnutrition -finance broker consulted, continue D5 IV fluid - Patient failed speech eval, cont on Dobbhoff tube for Tube feeding Dysphagia with aspiration risk - Patient failed the swallow study and recommended PEG by speech, updated patient's son again today - he stated that he will make that decision tomorrow BPH (benign prostatic hyperplasia) - on Flomax 0.4 mg with tube feeding daily Parkinson disease -on Sinemet with tube feeding DVT prophylaxis On Heparin and GI prophylaxis Brief HISTORY: CC; Fever amd AMS for 1 day 77-year-old male with a past history of dementia, htn, PD, BPH, glaucoma and Parkinson's disease presents from [facility] with altered mental status and fever. Hospitalist physical: General appearance: Patient is alert but no follows commands Eyes: anicteric sclerae, moist conjunctivae; no lid-lag; PERRLA HENT: Atraumatic; oropharynx limited Neck: Trachea midline; supple, no thyromegaly or lymphadenopathy Lungs: decreased BS dolly CV: RRR no murmur Abdomen: Soft, non-tender; no masses or hepatosplenomegaly Extremities: no edema, contracted Skin: stage I-II sacral not infected Psych: no agitated. Neuro: Open eyes, nonverbal, does not follow any command Subjective Date of service: 10/04/18 Principal diagnosis: sepsis Interval history: Patient seen and examined. Medical records and medication list reviewed. No acute event overnight noted by the RN. Patient appears more alert but unable to communicate verbally and does not follow any command Patient failed the swallow study, called patient's son today, he stated that he will make decision for PEG tube by tomorrow Discussed plan of care at bedside with patient's RN. Objective - Constitutional Vitals: Vital Signs - 12hr 10/04/18 10/04/18 10/04/18 07:00 08:00 09:00 Temperature 98.2 F Pulse Rate 74 71 81 Pulse Rate [ 77 From Monitor] Respiratory 19 19 21 Rate Blood Pressure 118/60 118/60 114/66 O2 Sat by Pulse 98 97 97 Oximetry 10/04/18 10/04/18 10/04/18 10:00 11:00 12:00 Temperature 98.4 F Pulse Rate 80 86 94 H Pulse Rate [ 77 From Monitor] Respiratory 24 17 16 Rate Blood Pressure 107/65 92/50 92/50 O2 Sat by Pulse 97 95 94 Oximetry 10/04/18 10/04/18 10/04/18 13:00 14:00 16:00 Temperature 98.3 F Pulse Rate 93 H 85 93 H Pulse Rate [ 77 From Monitor] Respiratory 16 14 16 Rate Blood Pressure 102/51 91/49 O2 Sat by Pulse 94 94 96 Oximetry - Labs CBC & Chem 7: 10/01/18 05:22 10/05/18 05:16 Labs: Abnormal lab results 10/04/18 Range/Units 05:38 Creatinine 0.5 L (0.8-1.5) mg/dL Glucose 132 H (75-100) mg/dL Calcium 7.7 L (8.4-10.2) mg/dL
[2018-10-05] MEDS: MAXIPIME/NS 1 GM/100 ML 1 GM/100 ML BAG IV SCH ×3 (02:20→18:19)
[2018-10-05 06:21] LABS: BUN/Creatinine Ratio 22; Blood Urea Nitrogen 11 mg/dL (9-20); Calcium 7.4 mg/dL (8.4-10.2); Hemolysis Index 1
[2018-10-05] MEDS: PEPCID PO SCH ×2 (10:28→21:24)
[2018-10-05] MEDS: FLOMAX PO SCH (10:28)
[2018-10-05] MEDS: SINEMET PO SCH ×3 (10:32→20:52)
[2018-10-05] MEDS: SODIUM CHLORIDE FLUSH SYRINGE 10 ML IV SCH ×2 (10:33→21:25)
[2018-10-05] MEDS: HEPARIN SUB-Q SCH ×2 (10:33→21:24)
[2018-10-05] MEDS: VANCOMYCIN 750 MG in NACL 0.9% 250ML 250 ML IV SCH ×2 (10:42→21:20)
--- NOTE | 2018-10-05 11:15 | Progress Note ---
Assessment and Plan Acute hypoxic respiratory failure, present on admission - Likely from underlying pneumonia, continue antibiotics Severe sepsis with UTI, PNA - cont abx per ID, fup final cx, ID input appreciated Hypotension, POA - likely from sepsis, resolved with Iv fluid Left lower lobe pneumonia, could be due to aspiration - Continue to treat with antibiotics ACUTE ON CHRONIC ENCEPHALOPATHY - likely from sepsis and hypernatremia hypernatremia due to free water deficit/KRISTIE due to ATN versus possible neuropathy -had episodes of hypotension that responded to IVF - cont hypotonic IVF, KRISTIE resolved, hyponatremia resolved -nephrology following the patient Coag negative bacteremia, likely contamination - repeat blood culture negative severe malnutrition -bunch maker hand consulted, continue D5 IV fluid - Patient failed speech eval, cont on Dobbhoff tube for Tube feeding Dysphagia with aspiration risk - Patient failed the swallow study and recommended PEG by speech, discussed with Son today at bedside and refused PEG tube according to patient living will. BPH (benign prostatic hyperplasia) - on Flomax 0.4 mg with tube feeding daily Parkinson disease -on Sinemet with tube feeding DVT prophylaxis On Heparin and GI prophylaxis Disposition: consult hospice Brief HISTORY: CC; Fever amd AMS for 1 day 77-year-old male with a past history of dementia, htn, PD, BPH, glaucoma and Parkinson's disease presents from [facility] with altered mental status and fever. Hospitalist physical: General appearance: Patient is alert but no follows commands Eyes: anicteric sclerae, moist conjunctivae; no lid-lag; PERRLA HENT: Atraumatic; oropharynx limited Neck: Trachea midline; supple, no thyromegaly or lymphadenopathy Lungs: decreased BS dolly CV: RRR no murmur Abdomen: Soft, non-tender; no masses or hepatosplenomegaly Extremities: no edema, contracted Skin: stage I-II sacral not infected Psych: no agitated. Neuro: Open eyes, nonverbal, does not follow any command Subjective Date of service: 10/05/18 Principal diagnosis: sepsis Interval history: Patient seen and examined. Medical records and medication list reviewed. No acute event overnight noted by the RN. Patient appears more alert but unable to communicate verbally and does not follow any command Patient failed the swallow study, family does not want PEG tube Discussed plan of care at bedside with patient's RN. Objective - Constitutional Vitals: Vital Signs - 12hr 10/05/18 10/05/1810/05/19 00:00 01:00 02:00 Temperature 98.2 F Pulse Rate 91 H 94 H 93 H Pulse Rate [ 92 H From Monitor] Respiratory 24 24 19 Rate Blood Pressure 85/45 94/43 94/43 O2 Sat by Pulse 93 94 94 Oximetry 10/05/18 10/05/18 10/05/18 03:00 04:00 05:00 Temperature 99.3 F Pulse Rate 91 H 85 86 Pulse Rate [ 85 From Monitor] Respiratory 20 20 17 Rate Blood Pressure 94/43 94/43 94/43 O2 Sat by Pulse 95 95 95 Oximetry 10/05/18 10/05/18 06:00 07:57 Temperature Pulse Rate 90 Pulse Rate [ From Monitor] Respiratory 12 Rate Blood Pressure 97/36 O2 Sat by Pulse 94 95 Oximetry - Labs CBC & Chem 7: 10/01/18 05:22 10/06/18 05:21 Labs: Abnormal lab results 10/05/18 Range/Units 05:16 Potassium 3.5 L (3.6-5.0) mmol/L Creatinine 0.5 L (0.8-1.5) mg/dL Glucose 151 H (75-100) mg/dL Calcium 7.4 L (8.4-10.2) mg/dL
[2018-10-05] MEDS: TYLENOL PO PRN (14:28)
[2018-10-05] MEDS: D5W 1,000 ML IV SCH (19:14)
[2018-10-06] MEDS: MAXIPIME/NS 1 GM/100 ML 1 GM/100 ML BAG IV SCH ×2 (00:19→08:54)
[2018-10-06 06:18] LABS: BUN/Creatinine Ratio 20; Blood Urea Nitrogen 10 mg/dL (9-20); Hemolysis Index 15
[2018-10-06] MEDS: SINEMET PO SCH ×3 (08:54→22:21)
[2018-10-06] MEDS: HEPARIN SUB-Q SCH ×2 (09:13→22:21)
[2018-10-06] MEDS: SODIUM CHLORIDE FLUSH SYRINGE 10 ML IV SCH ×2 (09:13→22:22)
[2018-10-06] MEDS: FLOMAX PO SCH (09:13)
[2018-10-06] MEDS: PEPCID PO SCH ×2 (09:13→22:21)
--- NOTE | 2018-10-06 09:31 | Progress Note ---
Assessment and Plan Cultures: Blood cultures 09/28/2018 CoNS 2 of 4 bottles from different sets - Staph hominis Urine cultures 09/28/2018 no growth Blood cultures 10/01/2018 no growth Assessment: 77 y/o male with history of dementia and Parkinson's disease, admitted on 09/28/2018 due to alteration mental status and fever 102.9: 1) Severe Sepsis: resolved. Etiology most likely due to HCAP +/- UTI. 2) HCAP: CXR shows confluent airspace disease retrocardiac and LLL. 3) CoNS bacteremia: possibly a contaminant. Repeat cultures negative. vancomycin completed 3) UTI: UA with 10 wbc, trace LE. he was [place] for a U[place] [facility] [place]ftriaxone IV D3 of 5 by the time he was admitted. He has a juarez ? brought it from [place]. Noted juarez cath, draining clear, light claudia urine on arrival to the ED. Juarez removed. 4) Acute respiratory failure: on oxygen. Improving. 5) KRISTIE: better. Recommendations: - discontinue antibiotics -Monitor off antibiotics [facility] [employer] M: [id number] O:[phone] Subjective Date of service: 10/06/18 Principal diagnosis: sepsis Interval history: Patient seen and examined. Nonverbal. Friend at bedside. No fevers. Objective - Exam Narrative Exam: Constitutional: awake, alert, no distress Head, Ears, Nose: Normocephalic, atraumatic. External ears, nose normal Eyes: Conjunctivae/corneas clear. No icterus. No ptosis. Neck: Supple, no meningeal signs Cardiovascular: S1, S2 normal. Respiratory: Good air entry, clear to auscultation bilaterally GI: Soft, non-tender; bowel sounds normal. No peritoneal signs, + NG tube Musculoskeletal: No pedal edema, no cyanosis. Skin: No rash or abscess. Stage I-II sacral wound not infected Hem/Lymphatic: No palpable cervical or supraclavicular nodes. No lymphangitis Psych: no agitation Neurological: awake, alert, confused at baseline - Constitutional Vitals: Vital Signs Temp Pulse Resp BP Pulse Ox 97.9 F 78 18 99/53 99 10/06/18 07:42 10/06/18 08:00 10/06/18 08:00 10/06/18 06:01 10/06/18 08:00 Temperature -Last 24 Hours Temperature 97.9 F Temperature 99.0 F Temperature 98.7 F Temperature 99.6 F Temperature 98.4 F Temperature 98.2 F - Labs CBC & Chem 7: 10/01/18 05:22 10/06/18 05:21 Labs: Abnormal lab results 10/06/18 Range/Units 05:21 Creatinine 0.5 L (0.8-1.5) mg/dL Glucose 141 H (75-100) mg/dL Calcium 8.0 L (8.4-10.2) mg/dL
--- NOTE | 2018-10-06 10:21 | Discharge Summary ---
Providers - Providers Date of Admission: 09/28/18 15:09 Date of discharge: 10/06/18 Attending physician: YANETH COTTON 09/28/18 Consult to Case Management [CONS] Routine Services Needed at Discharge: Value Analyst 09/28/18 19:50 Consult to Physician [CONS] Routine Comment: Consulting Provider: ZAIN CONTRERAS Physician Instructions: Reason For Exam: Sepsis 09/29/18 06:09 Consult to Dietitian/Nutrition [CONS] Routine Physician Instructions: R/o Aspiration Reason For Exam: Malnutrition Reason for Consult: Nutrition Recommendations Reason for Consult: Poor oral intake 09/29/18 15:26 Consult to Physician [CONS] Routine Comment: Consulting Provider: MARCO A FELIPE Physician Instructions: Reason For Exam: hypernatremia 09/30/18 08:41 Consult to Wound/ET Nurse [CONS] Routine Reason For Exam: wound eval, please see sacrum, hipa & BLE 09/30/18 18:35 Speech Therapy Evaluation and Treat [CONS] Routine Reason For Exam: failed bedside swallow eval 10/01/18 15:36 Consult to Dietitian/Nutrition [CONS] Routine Physician Instructions: Reason For Exam: Reason for Consult: Write/Manage Tube Feeding 10/03/18 11:33 Speech Therapy Evaluation and Treat [CONS] Routine Reason For Exam: re-evaluate swallow (failed bedside swallow evalu) 10/06/18 07:47 Consult to Case Management [CONS] Routine Services Needed at Discharge: Other Additional Physician Instructions: hospice Primary care physician: DEBBIE ESTEBAN Hospitalization Condition: Stable Pertinent studies: CXR abdominal xry 2d echo Hospital course: Discharge Diagnosis: Acute hypoxic respiratory failure, present on admission - Likely from underlying pneumonia, continue antibiotics Severe sepsis with UTI, PNA - cont abx per ID, fup final cx, ID input appreciated Hypotension, POA - likely from sepsis, resolved with Iv fluid Left lower lobe pneumonia, could be due to aspiration - Continue to treat with antibiotics ACUTE ON CHRONIC ENCEPHALOPATHY - likely from sepsis and hypernatremia hypernatremia due to free water deficit/KRISTIE due to ATN versus possible neuropathy -had episodes of hypotension that responded to IVF - cont hypotonic IVF, KRISTIE resolved, hyponatremia resolved -nephrology following the patient Coag negative bacteremia, likely contamination - repeat blood culture negative severe malnutrition -electrician shop consulted, continue D5 IV fluid - Patient failed speech eval, cont on Dobbhoff tube for Tube feeding Dysphagia with aspiration risk - Patient failed the swallow study and recommended PEG by speech, discussed with Son today at bedside and refused PEG tube according to patient living will. BPH (benign prostatic hyperplasia) - on Flomax 0.4 mg with tube feeding daily Parkinson disease -on Sinemet with tube feeding DVT prophylaxis On Heparin and GI prophylaxis Disposition: consult hospice Brief HISTORY: CC; Fever amd AMS for 1 day 77-year-old male with a past history of dementia, htn, PD, BPH, glaucoma and Parkinson's disease presents from [facility] with altered mental status and fever. Hospitalist physical: General appearance: Patient is alert but no follows commands Eyes: anicteric sclerae, moist conjunctivae; no lid-lag; PERRLA HENT: Atraumatic; oropharynx limited Neck: Trachea midline; supple, no thyromegaly or lymphadenopathy Lungs: decreased BS dolly CV: RRR no murmur Abdomen: Soft, non-tender; no masses or hepatosplenomegaly Extremities: no edema, contracted Skin: stage I-II sacral not infected Psych: no agitated. Neuro: Open eyes, nonverbal, does not follow any command Disposition: [id number] ([facility]) Time spent for discharge: 34 minutes Core Measure Documentation - Palliative Care Palliative Care/ Comfort Measures: Hospice Care - Core Measures Any of the following diagnoses?: none Exam - Constitutional Vitals: Temp Pulse Resp BP Pulse Ox 97.9 F 78 18 99/53 99 10/06/18 07:42 10/06/18 08:00 10/06/18 08:00 10/06/18 06:01 10/06/18 08:00 Plan Follow up with: DEBBIE ESTEBAN MD [Primary Care Provider] - 3-5 Days
[2018-10-06] MEDS: D5W 1,000 ML IV SCH ×2 (14:13→22:19)
--- NOTE | 2018-10-07 01:14 | Progress Note ---
Assessment and Plan Acute hypoxic respiratory failure, present on admission - Likely from underlying pneumonia, treated with antibiotics Severe sepsis with UTI, PNA - treated with abx per ID, off abx from today Hypotension, POA - likely from sepsis, resolved with Iv fluid Left lower lobe pneumonia, could be due to aspiration - treated with antibiotics ACUTE ON CHRONIC ENCEPHALOPATHY - likely from sepsis and hypernatremia hypernatremia due to free water deficit/KRISTIE due to ATN versus possible neuropathy -had episodes of hypotension that responded to IVF - cont hypotonic IVF, KRISTIE resolved, hyponatremia resolved -nephrology following the patient Coag negative bacteremia, likely contamination - repeat blood culture negative severe malnutrition -rn orthopaedic consulted, continue D5 IV fluid - Patient failed speech eval, cont on Dobbhoff tube for Tube feeding Dysphagia with aspiration risk - Patient failed the swallow study and recommended PEG by speech, discussed with Son at bedside and refused PEG tube according to patient living will. - for now TF with dobhoff BPH (benign prostatic hyperplasia) - on Flomax 0.4 mg with tube feeding daily Parkinson disease -on Sinemet with tube feeding DVT prophylaxis On Heparin and GI prophylaxis Disposition: consulted hospice -pending disposition Brief HISTORY: CC; Fever amd AMS for 1 day 77-year-old male with a past history of dementia, htn, PD, BPH, glaucoma and Parkinson's disease presents from [facility] with altered mental status and fever. Hospitalist physical: General appearance: Patient is alert but no follows commands Eyes: anicteric sclerae, moist conjunctivae; no lid-lag; PERRLA HENT: Atraumatic; oropharynx limited Neck: Trachea midline; supple, no thyromegaly or lymphadenopathy Lungs: decreased BS dolly CV: RRR no murmur Abdomen: Soft, non-tender; no masses or hepatosplenomegaly Extremities: no edema, contracted Skin: stage I-II sacral not infected Psych: no agitated. Neuro: Open eyes, nonverbal, does not follow any command Subjective Date of service: 10/07/18 Principal diagnosis: sepsis Interval history: Patient seen and examined. Medical records and medication list reviewed. No acute event overnight noted by the RN. Patient appears more alert but unable to communicate verbally and does not follow any command Patient failed the swallow study, family does not want PEG tube Discussed plan of care at bedside with patient's RN and CM discharge pending on hospice placement. Objective - Constitutional Vitals: Vital Signs - 12hr 10/06/18 10/06/18 10/06/18 14:00 15:01 16:00 Temperature 98.2 F Pulse Rate 88 97 H 92 H Pulse Rate [ 95 H From Monitor] Respiratory 17 26 H 19 Rate Blood Pressure 100/56 99/60 O2 Sat by Pulse 98 96 98 Oximetry 10/06/18 10/06/18 10/06/18 16:01 17:00 18:01 Temperature Pulse Rate 93 H 98 H 102 H Pulse Rate [ From Monitor] Respiratory 31 H 15 17 Rate Blood Pressure 122/75 132/69 132/69 O2 Sat by Pulse 99 98 96 Oximetry 10/06/18 10/06/18 10/06/18 19:01 20:00 20:33 Temperature 98.8 F 98.8 F Pulse Rate 97 H 97 H Pulse Rate [ 98 H From Monitor] Respiratory 24 17 Rate Blood Pressure 103/49 96/50 O2 Sat by Pulse 99 98 Oximetry 10/06/18 23:54 Temperature 98.9 F Pulse Rate Pulse Rate [ From Monitor] Respiratory Rate Blood Pressure O2 Sat by Pulse Oximetry - Labs CBC & Chem 7: 10/01/18 05:22 10/06/18 05:21 Labs: Abnormal lab results 10/06/18 Range/Units 05:21 Creatinine 0.5 L (0.8-1.5) mg/dL Glucose 141 H (75-100) mg/dL Calcium 8.0 L (8.4-10.2) mg/dL
--- NOTE | 2018-10-07 08:53 | Progress Note ---
Assessment and Plan Assessment and plan: Acute hypoxic respiratory failure, present on admission - Likely from underlying pneumonia, treated with antibiotics Severe sepsis with UTI, PNA - treated with abx per ID, off abx from today Hypotension, POA - likely from sepsis, resolved with Iv fluid Left lower lobe pneumonia, could be due to aspiration - treated with antibiotics ACUTE ON CHRONIC ENCEPHALOPATHY - likely from sepsis and hypernatremia hypernatremia due to free water deficit/KRISTIE due to ATN versus possible neuropathy -had episodes of hypotension that responded to IVF - cont hypotonic IVF, KRISTIE resolved, hyponatremia resolved -nephrology following the patient Coag negative bacteremia, likely contamination - repeat blood culture negative severe malnutrition -help desk administrator consulted, continue D5 IV fluid - Patient failed speech eval, cont on Dobbhoff tube for Tube feeding Dysphagia with aspiration risk - Patient failed the swallow study and recommended PEG by speech, discussed with Son at bedside and refused PEG tube according to patient living will. - for now TF with dobhoff BPH (benign prostatic hyperplasia) - on Flomax 0.4 mg with tube feeding daily Parkinson disease -on Sinemet with tube feeding DVT prophylaxis On Heparin and GI prophylaxis For discharge to inpatient hospice tomorrow History Interval history: Patient ill looking no fever Hospitalist Physical - Physical exam Narrative exam: Gen: Not in acute distress, lying in bed, malnourished HEENT: Normocephalic, atraumatic Neck: supple, no JVD Heart: S1 and S2 reg, no murmurs, rubs or gallop Lungs: Clear, no crackles, no wheeze Abd: soft, non tender, non distended, normal BS Ext: No edema, no clubbing, no cyanosis, Neuro: Awake,alert, moves all ext, non focal - Constitutional Vitals: Temp Pulse Resp BP Pulse Ox 97.8 F 83 20 112/57 95 10/07/18 08:00 10/07/18 08:00 10/07/18 08:00 10/07/18 08:00 10/07/18 08:08 General appearance: Present: no acute distress, well-nourished Results - Labs CBC & Chem 7: 10/01/18 05:22 10/06/18 05:21 Labs: Laboratory Last Values WBC 8.3 K/mm3 (4.5-11.0) 09/29/18 04:42 RBC 3.20 M/mm3 (3.65-5.03) L 09/29/18 04:42 Hgb 9.6 gm/dl (11.8-15.2) L 10/01/18 05:22 Hct 28.6 % (35.5-45.6) L 10/01/18 05:22 MCV 101 fl (84-94) H 09/29/18 04:42 MCH 34 pg (28-32) H 09/29/18 04:42 MCHC 34 % (32-34) 09/29/18 04:42 RDW 14.3 % (13.2-15.2) 09/29/18 04:42 Plt Count 211 K/mm3 (140-440) 09/29/18 04:42 Lymph % (Auto) 9.4 % (13.4-35.0) L 09/29/18 04:42 [place] % (Auto) 4.3 % (0.0-7.3) 09/29/18 04:42 Eos % (Auto) 0.0 % (0.0-4.3) 09/29/18 04:42 Baso % (Auto) 0.4 % (0.0-1.8) 09/29/18 04:42 Lymph # 0.8 K/mm3 (1.2-5.4) L 09/29/18 04:42 Spencer # 0.4 K/mm3 (0.0-0.8) 09/29/18 04:42 Eos # 0.0 K/mm3 (0.0-0.4) 09/29/18 04:42 Baso # 0.0 K/mm3 (0.0-0.1) 09/29/18 04:42 Add Manual Diff Complete 09/28/18 10:55 Total Counted 100 09/28/18 10:55 Seg Neutrophils % 85.9 % (40.0-70.0) H 09/29/18 04:42 Seg Neuts % (Manual) 77.0 % (40.0-70.0) H 09/28/18 10:55 7.0 % 09/28/18 10:55 6.0 % (13.4-35.0) L 09/28/18 10:55 Reactive Lymphs % (Man) 0 % 09/28/18 10:55 10.0 % (0.0-7.3) H 09/28/18 10:55 0 % (0.0-4.3) 09/28/18 10:55 0 % (0.0-1.8) 09/28/18 10:55 0 % 09/28/18 10:55 0 % 09/28/18 10:55 0 % 09/28/18 10:55 0 % 09/28/18 10:55 Nucleated RBC % Not Reportable 09/28/18 10:55 Seg Neutrophils # 7.1 K/mm3 (1.8-7.7) 09/29/18 04:42 Seg Neutrophils # Man 10.6 K/mm3 (1.8-7.7) H 09/28/18 10:55 Band Neutrophils # 1.0 K/mm3 09/28/18 10:55 0.8 K/mm3 (1.2-5.4) L 09/28/18 10:55 Abs React Lymphs (Man) 0.0 K/mm3 09/28/18 10:55 1.4 K/mm3 (0.0-0.8) H 09/28/18 10:55 0.0 K/mm3 (0.0-0.4) 09/28/18 10:55 0.0 K/mm3 (0.0-0.1) 09/28/18 10:55 0.0 K/mm3 09/28/18 10:55 0.0 K/mm3 09/28/18 10:55 0.0 K/mm3 09/28/18 10:55 Blast Cells # 0.0 K/mm3 09/28/18 10:55 WBC Morphology Not Reportable 09/28/18 10:55 Hypersegmented Neuts Not Reportable 09/28/18 10:55 Hyposegmented Neuts Not Reportable 09/28/18 10:55 Hypogranular Neuts Not Reportable 09/28/18 10:55 Not Reportable 09/28/18 10:55 Not Reportable 09/28/18 10:55 Not Reportable 09/28/18 10:55 Not Reportable 09/28/18 10:55 Not Reportable 09/28/18 10:55 Not Reportable 09/28/18 10:55 Consistent w auto 09/28/18 10:55 Not Reportable 09/28/18 10:55 Plt Clumps, EDTA Not Reportable 09/28/18 10:55 Not Reportable 09/28/18 10:55 Not Reportable 09/28/18 10:55 Not Reportable 09/28/18 10:55 Plt Morphology Comment Not Reportable 09/28/18 10:55 RBC Morphology Normal 09/28/18 10:55 Dimorphic RBCs Not Reportable 09/28/18 10:55 Not Reportable 09/28/18 10:55 Not Reportable 09/28/18 10:55 Not Reportable 09/28/18 10:55 Not Reportable 09/28/18 10:55 Not Reportable 09/28/18 10:55 Not Reportable 09/28/18 10:55 Not Reportable 09/28/18 10:55 Not Reportable 09/28/18 10:55 Not Reportable 09/28/18 10:55 Not Reportable 09/28/18 10:55 Not Reportable 09/28/18 10:55 Not Reportable 09/28/18 10:55 Not Reportable 09/28/18 10:55 Not Reportable 09/28/18 10:55 Not Reportable 09/28/18 10:55 Not Reportable 09/28/18 10:55 Not Reportable 09/28/18 10:55 Not Reportable 09/28/18 10:55 Not Reportable 09/28/18 10:55 Acanthocytes (Spur) Not Reportable 09/28/18 10:55 Rouleaux Not Reportable 09/28/18 10:55 Not Reportable 09/28/18 10:55 Not Reportable 09/28/18 10:55 Not Reportable 09/28/18 10:55 Not Reportable 09/28/18 10:55 Hem Pathologist Commnt No 09/28/18 10:55 POC ABG pH 7.408 (7.35-7.45) 09/28/18 14:16 POC ABG pCO2 37.5 (35-45) 09/28/18 14:16 POC ABG pO2 64 (80-105) L 09/28/18 14:16 POC ABG HCO3 23.6 (22-26 mml/L) 09/28/18 14:16 POC ABG Total CO2 25 (23-27mmol/L) 09/28/18 14:16 POC ABG O2 Sat 92 09/28/18 14:16 POC ABG Base Excess -1 ((-2) - (+3)mmol/L) 09/28/18 14:16 VBG pH 7.416 (7.320-7.420) 09/28/18 11:20 70 % 09/28/18 14:16 Sodium 139 mmol/L (137-145) 10/06/18 05:21 Potassium 4.3 mmol/L (3.6-5.0) D 10/06/18 05:21 Chloride 101.3 mmol/L (98-107) 10/06/18 05:21 Carbon Dioxide 29 mmol/L (22-30) 10/06/18 05:21 13 mmol/L 10/06/18 05:21 BUN 10 mg/dL (9-20) 10/06/18 05:21 0.5 mg/dL (0.8-1.5) L 10/06/18 05:21 Estimated GFR > 60 ml/min 10/06/18 05:21 20 % 10/06/18 05:21 Glucose 141 mg/dL (75-100) H 10/06/18 05:21 POC Glucose 151 (70-105) H 10/03/18 10:09 5.3 % (4-6) 09/28/18 10:55 Lactic Acid 1.60 mmol/L (0.7-2.0) 09/28/18 23:46 Calcium 8.0 mg/dL (8.4-10.2) L 10/06/18 05:21 0.60 mg/dL (0.1-1.2) 09/29/18 04:42 AST 34 units/L (5-40) 09/29/18 04:42 ALT 37 units/L (7-56) 09/29/18 04:42 54 units/L (35-129) 09/29/18 04:42 0.033 ng/mL (0.00-0.029) H D 09/28/18 14:46 5.6 g/dL (6.3-8.2) L 09/29/18 04:42 2.1 g/dL (3.9-5) L 09/29/18 04:42 0.6 % 09/29/18 04:42 Triglycerides TNR 09/28/18 10:55 Cholesterol TNR 09/28/18 10:55 TNR 09/28/18 10:55 TNR 09/28/18 10:55 TNR 09/28/18 10:55 Lotus (Yellow) 09/28/18 11:57 Slightly-cloudy (Clear) 09/28/18 11:57 5.0 (5.0-7.0) 09/28/18 11:57 Ur Specific [place] 1.027 (1.003-1.030) 09/28/18 11:57 30 mg/dl mg/dL (Negative) 09/28/18 11:57 Neg mg/dL (Negative) 09/28/18 11:57 Neg mg/dL (Negative) 09/28/18 11:57 Neg (Negative) 09/28/18 11:57 Neg (Negative) 09/28/18 11:57 Neg (Negative) 09/28/18 11:57 2.0 mg/dL (<2.0) 09/28/18 11:57 Ur Leukocyte Esterase Tr (Negative) 09/28/18 11:57 10.0 /HPF (0.0-6.0) H 09/28/18 11:57 9.0 /HPF (0.0-6.0) 09/28/18 11:57 U Epithel Cells (Auto) < 1.0 /HPF (0-13.0) 09/28/18 11:57 1+ /HPF (Negative) 09/28/18 11:57 3+ /HPF 09/28/18 11:57 Vancomycin Trough 11.4 ug/mL (5.0-20.0) 10/01/18 09:27 Valproic Acid 3.8 ug/mL (50-100) L 09/28/18 10:55 Active Medications - Current Medications Current Medications: Generic Name Dose Route Start Last Admin Trade Name Freq PRN Reason Stop Dose Admin Acetaminophen 650 mg 09/28/18 19:50 10/05/18 14:28 Tylenol PO 650 mg Q4H PRN Administration Pain MILD(1-3)/Fever >100.5/CHACKO Lipase/Protease/Amylase 1 each 10/01/18 16:[address] 10,500 Unit FEEDTUBE PRN PRN For Clogged Feeding Tube Carbidopa/Levodopa 1 each 09/29/18 08:00 10/06/18 22:21 Sinemet PO 1 each TID OMAYRA Administration Famotidine 20 mg 10/02/18 10:00 10/06/18 22:21 Pepcid PO 20 mg BID OMAYRA Administration Heparin Sodium (Porcine) 5,000 unit 09/29/18 10:00 10/06/18 22:21 Heparin SUB-Q 5,000 unit Q12HR OMAYRA Administration Dextrose 1,000 mls @ 75 mls/hr 09/29/18 20:00 10/06/18 22:19 D5w IV 150 mls/hr DIRECT OMAYRA Administration Morphine Sulfate 2 mg 09/28/18 19:50 Morphine IV Q4H PRN Pain, Moderate (4-6) Ondansetron HCl 4 mg 09/28/18 19:50 Zofran IV Q3H PRN Nausea And Vomiting Simple Syrup 15 ml 10/01/18 16:01 Simple Syrup FEEDTUBE PRN PRN Hypoglycemia Simple Syrup 30 ml 10/01/18 16:01 Simple Syrup FEEDTUBE PRN PRN Hypoglycemia Sodium Bicarbonate 325 mg 10/01/18 16:01 Sodium Bicarbonate FEEDTUBE PRN PRN For Clogged Feeding Tube Sodium Chloride 10 ml 09/28/18 22:00 10/06/18 22:22 Sodium Chloride Flush Syringe 10 Ml IV 10 ml BID OMAYRA Administration Sodium Chloride 10 ml 09/28/18 19:50 Sodium Chloride Flush Syringe 10 Ml IV PRN PRN LINE FLUSH Tamsulosin HCl 0.4 mg 09/29/18 10:00 10/06/18 09:13 Flomax PO 0.4 mg QDAY OMAYRA Administration Nutrition/Malnutrition Assess - Dietary Evaluation Nutrition/Malnutrition Findings: Nutrition Notes Start: 09/29/18 17:19 Freq: Status: Active Protocol: Document 10/04/18 13:11 SILVIO (Rec: 10/04/18 13:15 SILVIO [email or web address] [email or web address]) Nutrition Notes Initial or Follow up Reassessment Current Diagnosis Acute Kidney Injury,Sepsis Other Pertinent Diagnosis UTI, pneu, encephalopathy, Parkinson's dz, dementia, BPH Current Diet TF - Jevity 1.2 at 60ml/hr Labs/Tests Reviewed Pertinent Medications Reviewed Height 5 ft 9 in Weight 53.45 kg [place] Body Weight (kg) 72.72 BMI 17.4 Subjective/Other Information Observed TF infusing at goal rate via DHT. STEEL ESTIMATOR evaluated pt's swallowing function three times and recommends that pt remain NPO. Per case management note on yesterday, pt's son says that pt's living will states refusal of PEG placement. Pt's son to make decision about PEG placement. Percent of energy/protein needs met: 100% energy and pro Burn Absent Trauma Absent #2 Nutrition Diagnosis Underweight Diagnosis Progress(for reassessment Continues documentation) #1 Nutrition Diagnosis Inadequate oral intake Diagnosis Progress(for reassessment Continues documentation) Is patient on ventilator? No Is Patient Ambulatory and/or Out of Bed No REE-([facility]-confined to bed) 1506.600 Kcal/Kg value to use for calculation 35 Approximate Energy Requirements Using 1871 kcal/Kg Calculation Used for Recommendations Kcal/kg Additional Notes Pro needs 1.25-1.5g/k-80g /day Fluid needs 1ml/kcal Nutrition Intervention Nutrition Support: Continue Jevity 1.2 at 60ml/hr with 100ml water flush q4h. Kcal 1,728 Protein (gm) 80 Carbohydrates (gm) 244 Fat (gm) 57 Fluid (mL) 1,162 Fiber (gm) 26 Goal #1 TF tolerance Goal #2 TF to meet 100% energy and pro needs Goal #3 Wound healing Follow-Up By: 10/10/18 Additional Comments F/U: stable TF, PEG placement, wt
[2018-10-07] MEDS: SINEMET PO SCH ×3 (09:06→22:36)
[2018-10-07] MEDS: FLOMAX PO SCH (09:06)
[2018-10-07] MEDS: HEPARIN SUB-Q SCH ×2 (09:06→22:36)
[2018-10-07] MEDS: PEPCID PO SCH ×2 (09:06→22:36)
[2018-10-07] MEDS: SODIUM CHLORIDE FLUSH SYRINGE 10 ML IV SCH ×2 (09:07→22:37)
--- NOTE | 2018-10-07 10:55 | Progress Note ---
Assessment and Plan Cultures: Blood cultures 09/28/2018 CoNS 2 of 4 bottles from different sets - Staph hominis Urine cultures 09/28/2018 no growth Blood cultures 10/01/2018 no growth Assessment: 77 y/o male with history of dementia and Parkinson's disease, admitted on 09/28/2018 due to alteration mental status and fever 102.9: 1) Severe Sepsis: resolved. Etiology most likely due to HCAP +/- UTI. 2) HCAP: CXR shows confluent airspace disease retrocardiac and LLL. 3) CoNS bacteremia: possibly a contaminant. Repeat cultures negative. vancomycin completed 3) UTI: UA with 10 wbc, trace LE. he was treated for a UTI at [facility] with ceftriaxone IV D3 of 5 by the time he was admitted. He has a juarez ? brought it from [place]. Noted juarez cath, draining clear, light claudia urine on arrival to the ED. Juarez removed. 4) Acute respiratory failure: on oxygen. Improving. 5) KRISTIE: better. Recommendations: -Monitor off antibiotics -Clinically stable - ID is signing off [facility] [employer] M: [phone] O:[phone] Subjective Date of service: 10/07/18 Principal diagnosis: sepsis Interval history: Patient seen and examined. Asleep, difficult to arouse. Not following verbal requests. No fevers. Objective - Exam Narrative Exam: Constitutional: Asleep. Difficult to arouse. no acute distress Head, Ears, Nose: Normocephalic, atraumatic. External ears, nose normal Eyes: Conjunctivae/corneas clear. No icterus. No ptosis. Neck: Supple, no meningeal signs Cardiovascular: S1, S2 normal. Respiratory: Good air entry, clear to auscultation bilaterally GI: Soft, non-tender; bowel sounds normal. No peritoneal signs, + NG tube Musculoskeletal: No pedal edema, no cyanosis. Skin: No rash or abscess. Stage I-II sacral wound not infected Hem/Lymphatic: No palpable cervical or supraclavicular nodes. No lymphangitis Psych: no agitation Neurological: Asleep, difficult to arouse. - Constitutional Vitals: Vital Signs Temp Pulse Resp BP Pulse Ox 97.8 F 79 20 99/58 95 10/07/18 08:00 10/07/18 10:00 10/07/18 10:00 10/07/18 10:00 10/07/18 10:00 Temperature -Last 24 Hours Temperature 97.8 F Temperature 97.5 F Temperature 98 F Temperature 98.9 F Temperature 98.8 F Temperature 98.8 F Temperature 98.2 F Temperature 97.4 F - Labs CBC & Chem 7: 10/01/18 05:22 10/06/18 05:21
[2018-10-07] MEDS: D5W 1,000 ML IV SCH (14:11)
[2018-10-08] MEDS: D5W 1,000 ML IV SCH (03:12)
[2018-10-08] MEDS: SINEMET PO SCH (09:36)
[2018-10-08] MEDS: PEPCID PO SCH (09:36)
[2018-10-08] MEDS: HEPARIN SUB-Q SCH (09:36)
[2018-10-08] MEDS: FLOMAX PO SCH (09:36)
[2018-10-08] MEDS: SODIUM CHLORIDE FLUSH SYRINGE 10 ML IV SCH (09:37)
--- NOTE | 2018-10-08 09:42 | Discharge Summary ---
Providers - Providers Date of Admission: 09/28/18 15:09 Date of discharge: 10/08/18 Attending physician: MICHELLE JEFFREY 09/28/18 Consult to Case Management [CONS] Routine Services Needed at Discharge: Gill Box Operator 09/28/18 19:50 Consult to Physician [CONS] Routine Comment: Consulting Provider: ZAIN CONTRERAS Physician Instructions: Reason For Exam: Sepsis 09/29/18 06:09 Consult to Dietitian/Nutrition [CONS] Routine Physician Instructions: R/o Aspiration Reason For Exam: Malnutrition Reason for Consult: Nutrition Recommendations Reason for Consult: Poor oral intake 09/29/18 15:26 Consult to Physician [CONS] Routine Comment: Consulting Provider: MARCO A FELIPE Physician Instructions: Reason For Exam: hypernatremia 09/30/18 08:41 Consult to Wound/ET Nurse [CONS] Routine Reason For Exam: wound eval, please see sacrum, hipa & BLE 09/30/18 18:35 Speech Therapy Evaluation and Treat [CONS] Routine Reason For Exam: failed bedside swallow eval 10/01/18 15:36 Consult to Dietitian/Nutrition [CONS] Routine Physician Instructions: Reason For Exam: Reason for Consult: Write/Manage Tube Feeding 10/03/18 11:33 Speech Therapy Evaluation and Treat [CONS] Routine Reason For Exam: re-evaluate swallow (failed bedside swallow evalu) 10/06/18 07:47 Consult to Case Management [CONS] Routine Services Needed at Discharge: Other Additional Physician Instructions: hospice Primary care physician: DEBBIE ESTEBAN Hospitalization Condition: Poor Hospital course: Patient is 77-year-old male with a past history of dementia and Parkinson's disease presents from [facility] with altered mental status and fever. he had a temperature of 102.9 in ED. Patient grimaces and localizes pain but makes incomprehensible sounds and does not follow commands. Patient diagnosed with sepsis due to UTI, pneumonia, managed with antibiotics. Family decided on DNR and transfer to inpatient hospice. Arrangements were made and he was discharged to inpatient hospice on 10/08/18. Acute hypoxic respiratory failure, present on admission - Due to pneumonia, treated with antibiotics Severe sepsis secondary to UTI, Pneumonia - treated with abx per ID Physician Hypotension, POA -from sepsis, resolved with iv fluids Left lower lobe pneumonia, could be due to aspiration - treated with antibiotics ACUTE ON CHRONIC ENCEPHALOPATHY - likely from sepsis and hypernatremia hypernatremia due to free water deficit/ KRISTIE due to ATN versus possible neuropathy -had episodes of hypotension that responded to IVF - cont hypotonic IVF, KRISTIE resolved, hyponatremia resolved -nephrology following the patient Coag negative bacteremia, likely contamination - repeat blood culture negative severe malnutrition -conference reservationist consulted, continue D5 IV fluid - Patient failed speech eval, cont on Dobbhoff tube for Tube feeding Dysphagia with aspiration risk - Patient failed the swallow study and recommended PEG by speech but family declined BPH (benign prostatic hyperplasia) - on Flomax 0.4 mg with tube feeding daily Parkinson disease -on Sinemet with tube feeding DVT prophylaxis On Heparin and GI prophylaxis Total time spent on discharge, 32 mins. Disposition: [id number] ([facility]) - Discharge Diagnoses (1) KRISTIE (acute kidney injury) Status: Acute (2) Acute encephalopathy Status: Acute (3) Chronic dementia Status: Acute (4) Elevated troponin Status: Acute (5) Hypotension Status: Acute Qualifiers: Hypotension type: unspecified hypotension type Qualified Code(s): I95.9 - Hypotension, unspecified (6) Lactic acidosis Status: Acute (7) Parkinsons Status: Acute (8) Pneumonia Status: Acute Qualifiers: Laterality: left Lung location: lower lobe of lung (9) Sepsis Status: Acute (10) UTI (urinary tract infection) Status: Acute Qualifiers: Urinary tract infection type: acute cystitis (11) BPH (benign prostatic hyperplasia) Status: Chronic Qualifiers: Lower urinary tract symptom presence: symptoms present (12) Parkinson disease Status: Chronic Core Measure Documentation - Palliative Care Palliative Care/ Comfort Measures: Hospice Care - Core Measures Any of the following diagnoses?: none Exam - Constitutional Vitals: Temp Pulse Resp BP Pulse Ox 99.1 F 90 14 102/64 97 10/08/18 08:00 10/08/18 09:00 10/08/18 09:00 10/08/18 09:00 10/08/18 09:00 Plan Activity: advance as tolerated Diet: other (Tube feeding) Additional Instructions: 1.care to be continued by civil engineering intern Follow up with: DEBBIE ESTEBAN MD [Primary Care Provider] - 7 Days
[2018-10-08 10:36] VITALS: BP 102/60
== END 2018-10-08 12:25 | disposition hospice, inpatient (51) | DRG 871 ==
LOC: EDBD → ED 10:18 → 4A 15:09 → CC1 15:11 → IMCU 17:07
PROVIDERS: ADMIT Internal Medicine; ATTEND Internal Medicine
PROC: 4A033R1 Measurement of Arterial Saturation, Peripheral, Percutaneous Approach (ICD-10-PCS; principal; 2018-09-28)
DX: A41.9 Sepsis, unspecified organism (principal); E43 Unspecified severe protein-calorie malnutrition; N17.0 Acute kidney failure with tubular necrosis; J96.01 Acute respiratory failure with hypoxia; J69.0 Pneumonitis due to inhalation of food and vomit; G93.41 Metabolic encephalopathy; Z68.1 Body mass index [BMI] 19.9 or less, adult; E87.0 Hyperosmolality and hypernatremia; N30.00 Acute cystitis without hematuria; N40.1 Benign prostatic hyperplasia with lower urinary tract symptoms; F02.80 Dementia in other diseases classified elsewhere, unspecified severity, without behavioral disturbance, psychotic disturbance, mood disturbance, and anxiety; K21.9 Gastro-esophageal reflux disease without esophagitis; H40.9 Unspecified glaucoma; E87.6 Hypokalemia; G20 Parkinson's disease; E86.0 Dehydration; R65.20 Severe sepsis without septic shock; Z88.5 Allergy status to narcotic agent; Z88.8 Allergy status to other drugs, medicaments and biological substances; Z88.6 Allergy status to analgesic agent; Z93.1 Gastrostomy status
CPT/HCPCS: 36415; 51702; 71045; 74018; 80048; 80053; 80061; 80164; 80202; 81001; 82140; 82803; 82805; 82962; 83036; 84484; 85007; 85014; 85018; 85025; 87040; 87076; 87086; 87186; 87641; 93005; 93010; 93306; 94760; G0378; J0692; J1644; J1650; J2270; J2543; J3370; J3480; J7030; J7042; J7050; J7070